=== PATIENT | female | born 1990 | race Caucasian/White ===

== ENCOUNTER 2021-06-06 11:28 | Outpatient (RCR) | payer BC, SELFPAY ==
[2021-06-06 12:40] LABS: Beta HCG Quantitative < 2.39 mIU/ML
== END 2021-09-04 23:59 | disposition home or self-care (01) ==
LOC: ANHLAB 11:28
PROVIDERS: PCP Family Medicine Adolescent Medicine; Visit Provider Obstetrics & Gynecology
DX: O20.0 Threatened abortion (principal); Z29.13 Encounter for prophylactic Rho(D) immune globulin; O36.0130 Maternal care for anti-D [Rh] antibodies, third trimester, not applicable or unspecified; Z3A.00 Weeks of gestation of pregnancy not specified
CPT/HCPCS: 36415; 84702; 85461; 90384; J2790

== ENCOUNTER 2021-06-07 07:42 | Outpatient (RCR) | payer BC, SELFPAY ==
[2021-06-08] MEDS: RHO(D) IMMUNE GLOBULIN 300 MCG/2 ML SYRINGE IM (12:52)
== END 2021-09-05 23:59 | disposition home or self-care (01) ==
LOC: ANHIMG 07:42
PROVIDERS: PCP Family Medicine Adolescent Medicine; Visit Provider Obstetrics & Gynecology
DX: O20.0 Threatened abortion (principal); O36.0130 Maternal care for anti-D [Rh] antibodies, third trimester, not applicable or unspecified; Z3A.00 Weeks of gestation of pregnancy not specified
CPT/HCPCS: 96372

== ENCOUNTER 2021-07-07 12:08 | Outpatient (RCR) | payer BC, SELFPAY ==
[2021-07-05 14:19] LABS: Beta HCG Quantitative 8.17 mIU/ML
[2021-07-07 12:49] LABS: Beta HCG Quantitative 39.47 mIU/ML
[2021-07-08 07:56] LABS: Progesterone 11.1 ng/mL (***)
== END 2021-10-03 23:59 | disposition home or self-care (01) ==
LOC: ANHLAB 12:08
PROVIDERS: PCP Family Medicine Adolescent Medicine; Visit Provider Obstetrics & Gynecology
DX: N91.2 Amenorrhea, unspecified (principal); Z87.59 Personal history of other complications of pregnancy, childbirth and the puerperium; Z32.01 Encounter for pregnancy test, result positive
CPT/HCPCS: 36415; 84144; 84702

== ENCOUNTER 2022-01-13 08:00 | Outpatient (RCR) | payer BC, MEDICAID, SELFPAY ==
[2022-01-10 11:01] LABS: Hematocrit 33.1 % (37.0-47.0); Hemoglobin 10.9 g/dL (12.0-15.0)
[2022-01-10 11:04] LABS: Glucose 1 Hour PP 50gm Dose 157 mg/dL
[2022-01-10 11:45] LABS: HIV 1/2 Ab P24 Ag Result Negative (Negative)
[2022-01-13] MEDS: RHO(D) IMMUNE GLOBULIN 300 MCG/2 ML SYRINGE IM (12:08)
== END 2022-04-10 23:59 | disposition home or self-care (01) ==
LOC: ANHLAB 08:00
PROVIDERS: PCP Family Medicine Adolescent Medicine; Visit Provider Obstetrics & Gynecology
DX: Z29.13 Encounter for prophylactic Rho(D) immune globulin (principal); O36.0130 Maternal care for anti-D [Rh] antibodies, third trimester, not applicable or unspecified; Z11.4 Encounter for screening for human immunodeficiency virus [HIV]; Z3A.00 Weeks of gestation of pregnancy not specified
CPT/HCPCS: 36415; 82947; 85014; 85018; 85461; 86703; 86850; 86870; 86900; 86901; 90384; 96372; G0432; J2790

== ENCOUNTER 2022-01-18 12:29 | Observation (INO) | payer BC, MEDICAID, SELFPAY ==
[2022-01-18 12:49] VITALS: BP 110/76; PULSE 99
[2022-01-18 13:01] VITALS: BP 112/71; PULSE 96
[2022-01-18 13:31] VITALS: BP 110/75; PULSE 94
--- NOTE | 2022-01-23 08:54 | PM.OBTRLD ---
OB - Triage/Final Diagnosis Visit Information Comments/Additional reasons for admission: I have assessed the risk for this patient, Flo Carias, and determined that she would benefit from observation care. Final Diagnosis (1) Trauma during : Code(s): O9A.219 - Injury, poisoning and certain other consequences of external causes complicating , unspecified trimester Status: Acute
== END 2022-01-18 14:00 | disposition home or self-care (01) ==
PROVIDERS: Admitting Provider Obstetrics & Gynecology; PCP Family Medicine Adolescent Medicine; Visit Provider Obstetrics & Gynecology
DX: O9A.213 Injury, poisoning and certain other consequences of external causes complicating pregnancy, third trimester (principal); T14.90XA Injury, unspecified, initial encounter; W18.39XA Other fall on same level, initial encounter; Z3A.31 31 weeks gestation of pregnancy
CPT/HCPCS: G0378; G0379

== ENCOUNTER 2022-03-11 08:23 | Outpatient (CLI) | payer BC, MEDICAID, SELFPAY ==
[2022-03-11 09:15] VITALS: BP 108/77; PULSE 108
== END 2022-03-11 09:15 | disposition home or self-care (01) ==
LOC: ANHOBOP 09:07
PROVIDERS: PCP Family Medicine Adolescent Medicine; Visit Provider Obstetrics & Gynecology
DX: O42.92 Full-term premature rupture of membranes, unspecified as to length of time between rupture and onset of labor (principal); Z3A.39 39 weeks gestation of pregnancy
CPT/HCPCS: 59025; 84112

== ENCOUNTER 2022-03-17 16:50 | Inpatient (IN) | payer BC, MEDICAID, SELFPAY ==
[2022-03-17] VITALS (41 sets, daily range): BP systolic 105–143; BP diastolic 63–108; PULSE 62–99; TEMP 36.8–37; O2SAT 96–100; BMI 41.4
--- OUTSIDE RECORDS SUMMARY | 2022-03-17 16:55 | XMS_ITS | Encounter Summary ---
:1990 Author Care Team Providers Name Role Phone Mark Ortega MD Primary Care Provider [phone] Reason for Visit None recorded. Assessment and Plan 1. Single umbilical artery ? US, obstetric, biophysical profile + non-stress test 2. condition affecting obs tetrical care of mother Discussion Note: None recorded.Patient educational handouts: No information available. Plan of Care Reminders Provider Appointments Nst Nst, , EQ UIP 03/22/2022 10:00AM ? U/S OB BPP Ultras ound Two, 03/22/2022 TECH 9:30AM ? Ob Routine Pushpa Th erese 03/22/2022 MD Miles 10:30AM Lab None recorded. ? ? Referral None recorded. ? ? Procedures None recorded. ? ? Surgeries None recorded. ? ? Imaging US, Obstetric, [facility] Biophysical Profile + 02/22/2022 Non-stress Test Medications Name Start Date ? ? sertraline 50 mg tablet ? TAKE 1 TABLET BY MOUTH ONCE DAILY DIRECTED Unisom (diphenhydramine) ?
--- OUTSIDE RECORDS SUMMARY | 2022-03-17 16:55 | XMS_ITS | Encounter Summary ---
:1990 Author Care Team Providers Name Role Phone Mark Ortega MD Primary Care Provider [phone] Reason for Visit OB visit Assessment and Plan 1. Routine care Discussion Note: None recorded.Patient educational handouts: No information available. Plan of Care Reminders Provider Appointments Nst Nst, , EQ UIP 03/22/2022 10:00AM ? U/S OB BPP Ultras ound Two, 03/22/2022 TECH 9:30AM ? Ob Routine Pushpa Th mara Aquino, 03/22/2022 10:30AM Lab None ? ? recorded. Referral None ? ? recorded. Procedures None ? ? recorded. Surgeries None ? ? recorded. Imaging None ? ? recorded. Medications Name Start Date ? ? sertraline 50 mg tablet ? TAKE 1 TABLET BY MOUTH ONCE DAILY DIRECTED Unisom (diphenhydramine) ? Vitamin B-6 ? Medications Administered None recorded. Vitals Height Weight BMI Blood Pressure 5 ft 10 in 281 lbs 40.3 kg/m2 116/78 mm[Hg] Results Lab Results None recorded. Allergies Code Code System N
--- OUTSIDE RECORDS SUMMARY | 2022-03-17 16:55 | XMS_ITS | Encounter Summary ---
:1990 Author Care Team Providers Name Role Phone Mark Ortega MD Primary Care Provider [phone] Reason for Visit None recorded. Assessment and Plan 1. Single umbilical artery ? US, obstetric, biophysical profile + non-stress test Discussion Note: None recorded.Patient educational handouts: No [...] None recorded. ? ? Imaging US, Obstetric, [facility] Biophysical Profile + 03/15/2022 Non-stress Test Medications Name Start Date ? ? sertraline 50 mg tablet ? TAKE 1 TABLET BY MOUTH ONCE DAILY DIRECTED Unisom (diphenhydramine) ? Vitamin B-6 ? Medications Administered None recorded. Vitals N
--- OUTSIDE RECORDS SUMMARY | 2022-03-17 16:55 | XMS_ITS | Encounter Summary ---
:1990 Author Care Team Providers Name Role Phone Mark Ortega MD Primary Care Provider [phone] Reason for Visit None recorded. Assessment and Plan 1. Placenta circumvallata ? non-stress test Discussion Note: None recorded.Patient educational [...] recorded. Surgeries None ? ? recorded. Imaging Non-stress [place] Test 03/15/2022 Medications Name Start Date ? ? sertraline 50 mg tablet ? TAKE 1 TABLET BY MOUTH ONCE DAILY DIRECTED Unisom (diphenhydramine) ? Vitamin B-6 ? Medications Administered None recorded. Vitals None recorded. Results Lab Results None recorded. Allergies Code Code System
--- OUTSIDE RECORDS SUMMARY | 2022-03-17 16:55 | XMS_ITS | Encounter Summary ---
:1990 Author Care Team Providers Name Role Phone Mark Ortega MD Primary Care Provider [phone] Reason for Visit OB visit Assessment and Plan 1. Single umbilical artery 2. Placenta circumvallata Discussion Note: None recorded.Patient educational handouts: No [...] BMI Blood Pressure 5 ft 10 in 289 lbs 41.5 kg/m2 111/78 mm[Hg] Results Lab Results
--- OUTSIDE RECORDS SUMMARY | 2022-03-17 16:55 | XMS_ITS ---
:1990 Author Care Team Providers Name Role Phone GALA RODRÍGUEZ MD Primary Care Provider [phone] Allergies Code Code System Name Reaction Severity Status Onset NKDA ? Medications Name Status Start Date Stop Date ? ? Flublok Quad (PF) 180 mcg (45 mcg x 4)/0.5 mL IM syrin ge Completed ? 12/26/2020 PHARMACY ADMINISTERED medroxyprogesterone 10 mg tablet Completed ? 12/26/2020 TAKE 1 TABLET BY MOUTH ONCE DAILY FOR 10 DAYS metformin 500 mg tablet Completed ? 07/09/20 Take 1 tablet every day by oral route at bedtime for 14 days. then one tab BID. metoclopramide 5 mg tablet Completed ? 09/17 NuvaRing 0.12 mg-0.015 mg/24 hr vaginal Completed ? 12/26/2020 USE DIRECTED sertraline 50 mg tablet Active ? Not avai lable TAKE 1 TABLET BY MOUTH ONCE DAILY DIRECTED Unisom (diphenhydramine) Active ? Not philip ilable Vitamin B-6 Active ? Not available Problems Name Status Onset Date Source ? Polycystic Ovary Syndrome Active 12/27/2020 ? Insulin Resistance Active 12/27/2020 ? Active 08/20/2021 ? Prediabetes Active 08/22/2021 ? Depressive Disorder Active ? ? Placenta Circumvallata Active ? ? Single Umbilical Artery Active ? ? Laboratory Test Result Abnormal Active ? ? Procedures Date Name Performed by ?
--- OUTSIDE RECORDS SUMMARY | 2022-03-17 16:55 | XMS_ITS | Encounter Summary ---
:1990 Author Care Team Providers Name Role Phone Mark Ortega MD Primary Care Provider [phone] Reason for Visit None recorded. Assessment and Plan 1. condition affecting obs tetrical care of mother ? non-stress test Discussion Note: None recorded.Patient [...] ? recorded. Imaging Non-stress [place] Test 02/22/2022 Medications Name Start Date ? ? sertraline 50 mg tablet ? TAKE 1 TABLET BY MOUTH ONCE DAILY DIRECTED Unisom (diphenhydramine) ? Vitamin B-6 ? Medications Administered None recorded. Vitals None recorded. Results Lab Results None recorded. Allergies
--- OUTSIDE RECORDS SUMMARY | 2022-03-17 16:55 | XMS_ITS | Encounter Summary ---
:1990 Author Care Team Providers Name Role Phone Mark Ortega MD Primary Care Provider [phone] Reason for Visit OB visit Assessment and Plan 1. Placenta circumvallata 2. Single umbilical artery 3. Depressive disorder ? sertraline 50 mg tablet Discussion Note: None recorded.Patient educational handouts: No information available. Plan of Care Reminders Provider Appointments Nst Nst, , EQ UIP 03/22/2022 10:00AM ? U/S OB BPP Ultras ound Two, 03/22/2022 TECH 9:30AM ? Ob Routine Pushpa Angela Aquino, 03/22/2022 10:30AM Lab None ? ? [...] BMI Blood Pressure 5 ft 10 in 264 lbs 37.9 kg/m2
--- OUTSIDE RECORDS SUMMARY | 2022-03-17 16:55 | XMS_ITS | Encounter Summary ---
:1990 Author Care Team Providers Name Role Phone Mark Ortega MD Primary Care Provider [phone] Reason for Visit None recorded. Assessment and Plan 1. condition affecting obs tetrical care of mother ? US, obstetric, follow-up Discussion Note: None recorded.Patient educational handouts: No information available. Plan of Care Reminders Provider Appointments Nst Nst, , EQ UIP 03/22/2022 10:00AM ? U/S OB BPP Ultras ound Two, 03/22/2022 TECH 9:30AM ? Ob Routine Pushpa Th mara Aquino, 03/22/2022 10:30AM Lab None ? ? recorded. Referral None ? ? recorded. Procedures None ? ? recorded. Surgeries None ? ? recorded. Imaging [facility] Obstetric, Follow-up 02/08/2022 Medications Name Start Date ? ? sertraline 50 mg tablet ? TAKE 1 TABLET BY MOUTH ONCE DAILY DIRECTED Unisom (diphenhydramine) ? Vitamin B-6 ? Medications Administered None recorded. Vitals None recorded. Results Lab Results None recorded. Allergies
--- OUTSIDE RECORDS SUMMARY | 2022-03-17 16:55 | XMS_ITS | Encounter Summary ---
:1990 Author Care Team Providers Name Role Phone Mark Ortega MD Primary Care Provider [phone] Reason for Visit None recorded. Assessment and [...] ? recorded. Imaging Non-stress [place] Test 03/06/2022 Medications Name Start Date ? ? sertraline 50 mg tablet ? TAKE 1 TABLET BY MOUTH ONCE DAILY DIRECTED Unisom (diphenhydramine) ? Vitamin B-6 ? Medications Administered None recorded. Vitals None recorded. Results Lab Results None recorded. Allergies Code Code System
--- OUTSIDE RECORDS SUMMARY | 2022-03-17 16:55 | XMS_ITS | Encounter Summary ---
:1990 Author Care Team Providers Name Role Phone Mark Ortega MD Primary Care Provider [phone] Reason for Visit OB visit Assessment and Plan Assessment Note Patient is ___weeks . Discu ssed plan. 1. Routine care Discussion Note: None recorded.Patient [...] BMI Blood Pressure 5 ft 10 in 277 lbs 39.7 kg/m2 136/84 mm[Hg] Results
--- OUTSIDE RECORDS SUMMARY | 2022-03-17 16:55 | XMS_ITS | Encounter Summary ---
:1990 Author Care Team Providers Name Role Phone Mark Ortega MD Primary Care Provider [phone] Reason for Visit None recorded. Assessment and [...] ? recorded. Imaging Non-stress [place] Test 03/01/2022 Medications Name Start Date ? ? sertraline 50 mg tablet ? TAKE 1 TABLET BY MOUTH ONCE DAILY DIRECTED Unisom (diphenhydramine) ? Vitamin B-6 ? Medications Administered None recorded. Vitals None recorded. Results Lab Results None recorded. Allergies Code Code System
--- OUTSIDE RECORDS SUMMARY | 2022-03-17 16:55 | XMS_ITS | Encounter Summary ---
:1990 Author Care Team Providers Name Role Phone Mark Ortega MD Primary Care Provider [phone] Reason for Visit None recorded. Assessment and Plan 1. condition affecting obs tetrical care of mother ? US, obstetric, biophysical profile + non-stress test ? US, obstetric, follow-up Discussion Note: None [...] None recorded. ? ? Imaging US, Obstetric, [facility] Biophysical Profile + 03/06/2022 Non-stress Test ? US, Obstetric, [facility] Follow-up 03/06/2022 Medications Name Start Date ? ?
--- OUTSIDE RECORDS SUMMARY | 2022-03-17 16:55 | XMS_ITS | Encounter Summary ---
:1990 Author Care Team Providers Name Role Phone Mark Ortega MD Primary Care Provider [phone] Reason for Visit OB visit OB [id number] EDC 03/18/2022 LMP 12/02/2020 Assessment and Plan Assessment Note Patient is __37_weeks . Dis cussed plan. 1. Routine care Discussion Note: None [...] BMI Blood Pressure 5 ft 10 in 279
--- OUTSIDE RECORDS SUMMARY | 2022-03-17 16:55 | XMS_ITS | Encounter Summary ---
:1990 Author Care Team Providers Name Role Phone Mark Ortega MD Primary Care Provider [phone] Reason for Visit None recorded. Assessment and Plan 1. Placenta circumvallata ? US, obstetric, biophysical profile + non-stress [...] None recorded. ? ? Imaging US, Obstetric, [facility] Biophysical Profile + 03/01/2022 Non-stress Test Medications Name Start Date ? ? sertraline 50 mg tablet ? TAKE 1 TABLET BY MOUTH ONCE DAILY DIRECTED Unisom (diphenhydramine) ? Vitamin B-6 ? Medications Administered None recorded. Vitals Non
--- OUTSIDE RECORDS SUMMARY | 2022-03-17 16:56 | XMS_ITS | Encounter Summary ---
:1990 Author Care Team Providers Name Role Phone Mark Ortega MD Primary Care Provider [phone] Reason for Visit None recorded. Assessment and [...] recorded. Surgeries None ? ? recorded. Imaging [facility] Obstetric, Follow-up 01/09/2022 Medications Name Start Date ? ? sertraline 50 mg tablet ? TAKE 1 TABLET BY MOUTH ONCE DAILY DIRECTED Unisom (diphenhydramine) ? Vitamin B-6 ? Medications Administered None recorded. Vitals None recorded. Results Lab Results None recorded. Allergies
--- NOTE | 2022-03-17 17:01 | P.PNAN_ITS ---
Anes - Eval Pre Procedure Procedure: labor epidural Date/Time: 03/17/22 17:01 Surgeon: addie Pre Op Diagnosis: IOL Patient Data Age: 31 Gender: F Height: Weight: Allergies Allergy/AdvReac Type Severity Reaction Status Date / Time adhesive tape Allergy Rash Verified 02/19/22 12:44 Patient hx anesthesia problems: none Family hx anesthesia problems: none Results Review: All pre-operative results and documents have been reviewed as part of the pre-operative evaluation. [facility] Family History Family History (Updated 02/19/22 @ 12:45 by Joan Tadeo RN) Mother Skin cancer Sibling ADHD Sibling Autism Father Colon cancer Social History Social History Substance use: never Spiritual care concerns: No Exam Day of Procedure 03/17/22 17:01
--- NOTE | 2022-03-17 17:30 | LDADM ---
This patient, Flo Carias, was admitted to Labor/Delivery/Recovery 107 on 03/17/22 at 16:50. Plans for labor, pain management and were discussed with patient. Patient/family oriented to hospital policies and general routines including ID bracelet, bed and alarms, visiting hours, pain management, procedures, bathroom and other care routines, personal items, smoking policy, room service/diet and guest tray routines, infant security routines, and visiting hours. Patient/Family are encouraged to report perceived risks to care and to ask questions if they do not understand what they are told or what they should do. See OBIX for further documentation.
[2022-03-17 17:43] LABS: Basophils Percent Auto 0.3 % (0.2-1.2); Eosinophils Absolute Auto 0.1 K/mm3 (0-0.3); Eosinophils Percent Auto 0.7 % (0-4.4); Hematocrit 36.5 % (37.0-47.0); Hemoglobin 11.7 g/dL (12.0-15.0); Immature Granulocyte Absolute 0.03 K/mm3 (0.00-0.031); Immature Granulocyte Percent A 0.4 % (0-0.5); Lymphocytes Absolute Auto 1.45 K/mm3 (0.9-3.2); Lymphocytes Percent Auto 21.2 % (18.3-44.2); Mean Corpuscular HGB Conc 32.1 g/dl (32-36); Mean Corpuscular Hemoglobin 28.1 pg (26-34); Mean Corpuscular Volume 87.5 fl (80-100); Mean Platelet Volume 9.8 fl (7.4-10.4); Monocytes Absolute Auto 0.6 K/mm3 (0.1-0.6); Monocytes Percent Auto 9.1 % (2.6-8.5); Neutrophils Absolute Auto 4.7 K/mm3 (1.3-6.7); Neutrophils Percent Auto 68.3 % (45.5-73.1); Platelet Count Result 192 k/mm3 (150-375); Red Blood Count 4.17 M/mm3 (4.2-5.4); Red Cell Distribution Width 13.6 % (11.5-14.5); White Blood Count 6.8 K/mm3 (4.5-10.0)
[2022-03-17 17:53] LABS: Alanine Aminotransferase 13 U/L (4-35); Albumin Level 3.7 g/dL (3.5-5.1); Alkaline Phosphatase 130 U/L (38-126); Anion Gap 7 mmol/L (8-16); Aspartate Amino Transferase 24 U/L (14-36); Bilirubin,Total 0.2 mg/dL (0.2-1.3); Blood Urea Nitrogen 16 mg/dL (7-17); Calcium 8.6 mg/dL (8.4-10.2); Carbon Dioxide 18 mmol/L (22-30); Chloride 109 mmol/L (98-107); Estimated CRCL calculation 170 ml/min; Estimated Glomerular Filt Rate > 60; Glucose 77 mg/dL (65-110); Potassium 3.9 mmol/L (3.4-5.0); Sodium 134 mmol/L (137-145); Uric Acid 5.9 mg/dL (2.5-7.5)
[2022-03-17] MEDS: LACTATED RINGERS 1,000 ML 125 ML IV CONT (18:00)
[2022-03-17] MEDS: OXYTOCIN 30 UNITS/NS 500 ML 30 UNITS/500 ML BAG IV CONT (18:01)
[2022-03-18] VITALS (24 sets, daily range): BP systolic 106–132; BP diastolic 58–87; PULSE 81–108; RESP 16–20; TEMP 36.6–37.2; O2SAT 97–100
[2022-03-18] MEDS: LACTATED RINGERS 1,000 ML 125 ML IV CONT (00:05)
--- NOTE | 2022-03-18 00:46 | PM.OBPRVD ---
OB - Delivery Note Procedure Delivery date: 03/18/22 Procedure: Induction method: AROM and Per Pitocin Protocol Delivery monitor: External FHT and External Uterine Route of delivery: Episiotomy description: None Laceration Description: Perineal - 2nd Degree Delivery repair: vicryl Quantitative Blood Loss (ml): 325 Anesthesia type: Epidural Disposition: Floor Narrative: With adequate expulsive efforts by the mother, the baby's head was delivered OA. The baby's anterior shoulder was delivered under the pubic symphysis without difficulty. The posterior shoulder and the rest of the baby delivered without difficulty. The was placed on the mothers chest and suctioned and stimulated. The cord was clamped and cut after 30 seconds. Mother and baby both stable. [place] Baby Date of : 03/18/22 Time of : 00:28 Weeks of gestation at delivery: 40 Infant gender: Male Weight (pounds): 9 Weight (ounces): 6 presentation: vertex Placenta delivery description: Spontaneous Cord Vessel Description: 2 Vessels, Nuchal Cord (x2) and Clamped/Cut Narrative: apgars pending per nursery
[2022-03-18] MEDS: OXYTOCIN 30 UNITS/NS 500 ML 30 UNITS/500 ML BAG 125 UNITS IV CONT (01:08)
[2022-03-18] MEDS: WITCH HAZEL 40 PADS 1 PAD TOPICAL (01:09)
[2022-03-18] MEDS: IBUPROFEN 600 MG TABLET PO ×3 (01:09→20:40)
[2022-03-18] MEDS: BENZOCAINE 20% AER SPR (*SP) 56 GM CAN 1 SPRAY TOPICAL (01:09)
[2022-03-18] MEDS: METHYLERGONOVINE MALEATE 0.2 MG/ML VIAL IM (04:18)
--- NOTE | 2022-03-18 06:42 | OBPPTRN ---
03/18/2022 at 0318 Patient transferred to post room #282 Support person, Josefina the patient's mother is present. Oriented to unit, room, information board, rooming in, admission packet and security measures. Patient verbalizes understanding.
--- NOTE | 2022-03-18 07:43 | WPDOBADMIT ---
Obstetrics - Admit Note Admission Note: record reviewed. No pertinent additions to the history and/or any subsequent changes in the physical findings that are not consistent with the expected course of the were found. Additions to the history and/or subsequent changes in the physical findings follow. IUP at 40w for IOL. GBS neg, SUA. Placenta cricumvallate, has had normal growth. Depression on zoloft, stable. Anticipate .
[2022-03-18] MEDS: MULTIVIT/MIN/PREN/FOL AC/IRON TABLET 1 TAB PO (08:58)
[2022-03-18] MEDS: SERTRALINE HCL 50 MG TABLET PO (08:59)
[2022-03-18] MEDS: DOCUSATE SODIUM 100 MG CAPSULE PO (08:59)
[2022-03-18 09:00] LABS: Rapid Plasma Reagin Non-Reactive (NonReactive)
--- NOTE | 2022-03-18 14:49 | PC.NURSE ---
1300 - Introductions were made, then consulted with patient to assess needs related to . Mother led the conversation with her experience feeding her infant so far. Mother works well with her . Encouraged understanding of the benefits of skin to skin (unwrapping and placing vertically on her chest), responsive feeding and how to watch for early feeding signs, frequency of feeding on demand about every 8-12 times in 24 hours (every 2-3 hours), milk production, duration of feeding, signs of adequate intake/output and how to record on the feeding sheet. Mother has infant latched optimally on the right breast using football positioning. detach due to latch appearing to be less than 90 degrees, then improved positioning with tucking infant's buttocks up under mom's arm. Reviewed positioning and ear, shoulder, hip alignment, supporting the breast, asymmetrical latch (off-center), and leading with the chin with a big open side gape. latched optimally to the right breast in football position. Education given to mother of how to visualize suck/swallow ratios and drinking at the breast. Infant was able to maintain latch without discomfort to mother. Nipple care reviewed with optimal latch and good positioning. Reviewed good handwashing when or touching the breast/nipples to prevent infection. self detached and nipple was not misshaped, then optimally latched onto left breast in football position and effectively breastfed with pain denied by mother. Resources used to facilitate learning were used with the visual handouts/ tool/mom and baby guide. Mother voiced understanding of responsive feedings, stimulating with skin to skin, hand expressed colostrum, touch, talking to to encourage if it has been 2 -3 hours since the start of the last , to call if does not latch or there is discomfort with . Reported to the primary RN.
[2022-03-18] MEDS: ACETAMINOPHEN 325 MG TABLET 650 MG PO (20:40)
[2022-03-19] VITALS: BP 109/71; PULSE 80; RESP 20; TEMP 36.8
[2022-03-19 06:02] LABS: Hematocrit 30.2 % (37.0-47.0); Hemoglobin 9.5 g/dL (12.0-15.0)
[2022-03-19 07:45] VITALS: BP 121/78; PULSE 85; RESP 18; TEMP 36.9; O2SAT 97
--- NOTE | 2022-03-19 07:53 | P.PNOB_ITS ---
OB - PN: Subj Subjective Date/time seen: 03/19/22 07:53 Patient comments: no complaints and pain well controlled baby status: doing well [place] feeding status: breast and bottle feeding Narrative: would like to go home today if baby's sugars are ok OB - PN: Obj Data Labs CBC & Chem 7: 03/19/22 05:24 03/17/22 17:36 Labs: Laboratory Results - last 24 hr 03/17/22 03/19/22 17:35 05:24 Hgb 9.5 L Hct 30.2 L RPR Non-reactive OB - PN A/P Assessment and Plan (1) , delivered: Code(s): O80 - Encounter for full-term uncomplicated delivery Status: Acute Plan day: 1 Plan: routine care and discharge home Comments: home if baby ok for DC Time Spent With Patient Time: Total time spent is greater than 50% in coordination of care (as documented) at patient's floor/unit and/or counseling patient: Time with patient: less than 15 minutes Exam Narrative: NAD abdomen soft, nontender, fundus firm below the umbilicus Extremities nontender, 1+ edema
--- NOTE | 2022-03-19 07:58 | PM.OBDSVD ---
DS: Admitting Diagnosis Discharge Date 03/19/22 Admitting Diagnosis term IUP DS: Discharge Diagnosis Discharge Diagnosis (1) , delivered: Code(s): O80 - Encounter for full-term uncomplicated delivery Status: Acute OB - DS: Summary Hospital Course Hospital Course: Flo was admitted for induction of labor. She had an uncomplicated vaginal delivery and post course. OB Procedures : NST and Ultrasound OB Procedures Intrapartum: Spontaneous Vag Delivery OB Procedures: : None Peripartum Data Infant Delivery Method: Natural Vaginal Status at Discharge Functional status at discharge: independent ambulation Time Spent with Patient Time attestation: Total time spent providing and/or coordinating discharge services: Exam Narrative: NAD abdomen soft, appropriately tender Ext non tender, 1+ edema DS: Data Data Completed and Pending Labs on day of discharge: Labs from last 24 hours 03/19/22 03/17/22 05:24 17:35 Hgb 9.5 L Hct 30.2 L RPR Non-reactive Discharge Plan Discharge Attending physician on discharge: Pushpa Aquino Discharging Clinician: Pushpa Aquino Anticipated Discharge Date/Time: 03/19/22 11:00 Patient Disposition: Home, Self-Care Activity: pelvic rest Diet: regular Patient Instructions: Antibiotic Form Stand Alone Forms: General Discharge Information Follow-up/Referrals: Pushpa Aquino MD [Physician] - 4 Weeks Discharge Medications: Continued sertraline [Zoloft] 50 mg Tablet 50 mg PO DAILY RF: 0 Vitamin Tablet 1 tablet PO DAILY RF: 0 Discontinued Unisom (doxylamine) 25 mg Tablet 12.5 mg PO HS PRN (Reason: Sleep) RF: 0 Date of admission: 03/17/22 16:50 Primary Care Provider: Mark Ortega Admitting Provider: Pushpa Aquino Attending physician on admission: Pushpa Aquino Condition: Stable
[2022-03-19] MEDS: SERTRALINE HCL 50 MG TABLET PO (08:42)
[2022-03-19] MEDS: POLYSACCHARIDE IRON COMPLEX 150 MG CAPSULE PO (08:42)
[2022-03-19] MEDS: IBUPROFEN 600 MG TABLET PO (08:42)
[2022-03-19] MEDS: DOCUSATE SODIUM 100 MG CAPSULE PO (08:42)
--- NOTE | 2022-03-19 09:18 | WPDANLDPN2 ---
Anes-Prog Note L&D Date/Time: 03/19/22 09:18 Comfortable throughout: labor and delivery Neuraxial method: epidural Epidural/Spinal procedure site: clean & non-tender Neuro status: Neuro function grossly intact. Cardiovascular status: normal Respiratory status: normal Airway patency: baseline Mental status: baseline Post-Op hydration status: normal Vital Signs: Last Vital Signs Temp 98.2 F 03/19/22 00:00 Pulse 80 03/19/22 00:00 Resp 20 03/19/22 00:00 BP 109/71 03/19/22 00:00 Pulse Ox 98 03/18/22 17:35 Pain score (VAS): 0 I/O: Intake & Output 03/18/22 03/19/22 03/19/22 23:59 07:59 15:59 Intake Total 480 Balance 480 Post-procedural complaints: none Patient feedback: Patient satisfied with anesthetic care.
--- NOTE | 2022-03-19 10:33 | PC.NURSE ---
0845 - Consulted with patient to assess needs related to . Mother led conversation with her experience with feeding baby so far. Mother works well with her with encouragement. Reviewed working with infant, breast, nipples and how to protect the nipples with an optimal deep latch, good positioning, and good hand washing. Mother understands the benefits of skin to skin, responding to feeding cues, frequencies of feeding 8-12 times in 24 hours (approximately 2-3 hours), duration of feedings, milk production, intake/output feeding sheet and signs of adequate intake encouraging swallowing at the breast. Mother states infant has been supplemented with formula from a bottle and cup feeding related to a low blood sugar. Blood sugar checked at 0849 and resulted at 50 mg/dl. is inconsolable when at the breast and chest. frantically sucks on the pacifier provided by mother. Rare latching with infant results with a few sucks, then crying. Supplemented infant with 10cc, then infant calmed down and latched effectively to the left breast using a football position. maintained latch with no discomfort to mother, nice rounded cheek. Reviewed positioning and alignment, supporting breast, off-centered (asymmetrical latch) and leading with the chin with big open wide gape. Education given to mother of how to visualize suck/swallow ratios and drinking at the breast. Infant was able to maintain latch without discomfort to mother. Nipple care reviewed with optimal latch and good positioning, comfort, healing with warm, wet washcloth to rinse breast, then leave open to air-dry, colostrum may be left on nipples to dry but have clean hands when touching the nipple/breast as needed. Resources used to facilitate learning were used from the visual handout/mom and baby guide. Mother voiced understanding of the education shared, calling for assistance if the infant does not latch or if there is discomfort with . Reported to the primary RN.
--- NOTE | 2022-03-19 16:49 | PC.NURSE ---
1200 Patient viewed the discharge video Mother & Baby Care, The First Two Weeks . Patient was given the opportunity and encouraged to ask questions. Patient verbalized understanding of information shared and has been given the mother/baby guide for home reference.
[2022-03-20 09:56] VITALS: BP 133/96; PULSE 94; RESP 20; TEMP 37; O2SAT 100
== END 2022-03-19 16:15 | disposition home or self-care (01) | DRG 807 ==
LOC: ANHLDR 16:53 → ANHOB2 03-18 03:28
PROVIDERS: Admitting Provider Obstetrics & Gynecology; PCP Family Medicine Adolescent Medicine; Visit Provider Obstetrics & Gynecology
DX: O43.113 Circumvallate placenta, third trimester (principal); Z37.0 Single live birth; Z3A.40 40 weeks gestation of pregnancy; O69.81X0 Labor and delivery complicated by cord around neck, without compression, not applicable or unspecified; O77.0 Labor and delivery complicated by meconium in amniotic fluid; O70.1 Second degree perineal laceration during delivery; O99.344 Other mental disorders complicating childbirth; F32.A Depression, unspecified
CPT/HCPCS: 36415; 80053; 84112; 84550; 85014; 85018; 85025; 86592; 86850; 86870; 86880; 86900; 86901; 86902; 86971; A9270; J2210; J2590; J2795; J7120

== ENCOUNTER 2022-03-20 11:08 | Outpatient (CLI) | payer BC, MEDICAID, SELFPAY ==
[2022-03-20 11:32] VITALS: BP 118/85; PULSE 93; RESP 16; TEMP 36.4
[2022-03-20 11:45] VITALS: BP 112/82; PULSE 87
[2022-03-20 11:48] LABS: Basophils Percent Auto 0.5 % (0.2-1.2); Eosinophils Absolute Auto 0.1 K/mm3 (0-0.3); Eosinophils Percent Auto 1.2 % (0-4.4); Hematocrit 30.9 % (37.0-47.0); Hemoglobin 9.8 g/dL (12.0-15.0); Immature Granulocyte Absolute 0.03 K/mm3 (0.00-0.031); Immature Granulocyte Percent A 0.4 % (0-0.5); Lymphocytes Absolute Auto 1.17 K/mm3 (0.9-3.2); Lymphocytes Percent Auto 14.2 % (18.3-44.2); Mean Corpuscular HGB Conc 31.7 g/dl (32-36); Mean Corpuscular Hemoglobin 28.3 pg (26-34); Mean Corpuscular Volume 89.3 fl (80-100); Mean Platelet Volume 9.3 fl (7.4-10.4); Monocytes Absolute Auto 0.6 K/mm3 (0.1-0.6); Monocytes Percent Auto 7.4 % (2.6-8.5); Neutrophils Absolute Auto 6.3 K/mm3 (1.3-6.7); Neutrophils Percent Auto 76.3 % (45.5-73.1); Platelet Count Result 171 k/mm3 (150-375); Red Blood Count 3.46 M/mm3 (4.2-5.4); Red Cell Distribution Width 14.1 % (11.5-14.5); White Blood Count 8.2 K/mm3 (4.5-10.0)
[2022-03-20 12:00] VITALS: BP 116/87; PULSE 89
[2022-03-20 12:00] LABS: Alanine Aminotransferase 14 U/L (4-35); Alkaline Phosphatase 88 U/L (38-126); Anion Gap 5 mmol/L (8-16); Aspartate Amino Transferase 23 U/L (14-36); Bilirubin,Total < 0.1 mg/dL (0.2-1.3); Blood Urea Nitrogen 11 mg/dL (7-17); Calcium 8.1 mg/dL (8.4-10.2); Carbon Dioxide 24 mmol/L (22-30); Chloride 107 mmol/L (98-107); Estimated Glomerular Filt Rate > 60; Glucose 94 mg/dL (65-110); Potassium 4.2 mmol/L (3.4-5.0); Sodium 136 mmol/L (137-145); Uric Acid 6.4 mg/dL (2.5-7.5)
--- NOTE | 2022-03-20 14:06 | PC.NURSE ---
Sandy MCCLOUDM informed of BP's, lab results, and I held the Labetalol. Order received to discharge pt to home with preeclampsia precautions and to make appointment to have BP checked in office next week.
== END 2022-03-20 12:35 | disposition home or self-care (01) ==
LOC: ANHOBOP 11:13 → ANHOBPP 11:14
PROVIDERS: Advanced Practice Midwife; PCP Family Medicine Adolescent Medicine; Visit Provider Obstetrics & Gynecology
DX: O16.5 Unspecified maternal hypertension, complicating the puerperium (principal)
CPT/HCPCS: 36415; 80053; 84550; 85025; 99199

== ENCOUNTER 2022-03-23 21:38 | Outpatient (CLI) | payer BC, MEDICAID, SELFPAY ==
--- NOTE | 2022-03-23 22:06 | OBADM ---
This patient, lFo Carias, admitted to the OB room OB Post 116 for observation. Patient/family oriented to hospital policies and general routines including ID bracelet, bed and alarms, visiting hours, pain management, procedures, bathroom and other care routines, personal items, smoking policy, room service/diet, and visiting hours. Patient/Family are encouraged to report perceived risks to care and to ask questions if they do not understand what they are told or what they should do.
[2022-03-23 22:08] LABS: Basophils Percent Auto 0.4 % (0.2-1.2); Eosinophils Absolute Auto 0.1 K/mm3 (0-0.3); Hematocrit 35.3 % (37.0-47.0); Immature Granulocyte Absolute 0.05 K/mm3 (0.00-0.031); Immature Granulocyte Percent A 0.7 % (0-0.5); Lymphocytes Absolute Auto 1.56 K/mm3 (0.9-3.2); Lymphocytes Percent Auto 21.8 % (18.3-44.2); Mean Corpuscular HGB Conc 31.2 g/dl (32-36); Mean Corpuscular Hemoglobin 27.9 pg (26-34); Mean Corpuscular Volume 89.6 fl (80-100); Mean Platelet Volume 9.3 fl (7.4-10.4); Monocytes Absolute Auto 0.8 K/mm3 (0.1-0.6); Monocytes Percent Auto 10.6 % (2.6-8.5); Neutrophils Absolute Auto 4.6 K/mm3 (1.3-6.7); Neutrophils Percent Auto 64.5 % (45.5-73.1); Platelet Count Result 252 k/mm3 (150-375); Red Blood Count 3.94 M/mm3 (4.2-5.4); Red Cell Distribution Width 13.6 % (11.5-14.5); White Blood Count 7.2 K/mm3 (4.5-10.0)
[2022-03-23 22:13] VITALS: PULSE 101; PULSE 72; O2SAT 98
[2022-03-23 22:14] VITALS: BP 145/94; PULSE 90; RESP 18; TEMP 37
[2022-03-23 22:16] LABS: Add Urine Microscopic? YES; Appearance Urine Cloudy (Clear); Bilirubin Urine Negative (Negative); Blood Urine 3+ (Negative); Color Urine Yellow (Yellow); Glucose Urine UA Negative (Negative); Ketones Urine Negative (Negative); Leukocyte Esterase Ur 2+ LEU/UL (NEGATIVE); Mucus Urine Rare /lpf; Nitrate Urine Negative (Negative); Protein Urine Negative (Negative); Specific Grav Ur 1.018 (1.001-1.035); Squamous Epithelial Cell Urine Occasional /hpf (Few); Urobilinogen Urine Negative mg/dL (<2.0); WBC Urine 16-20 /hpf (0-3)
[2022-03-23 22:22] LABS: Alanine Aminotransferase 22 U/L (4-35); Albumin Level 3.5 g/dL (3.5-5.1); Alkaline Phosphatase 104 U/L (38-126); Anion Gap 5 mmol/L (8-16); Aspartate Amino Transferase 27 U/L (14-36); Bilirubin,Total 0.1 mg/dL (0.2-1.3); Blood Urea Nitrogen 14 mg/dL (7-17); Calcium 8.4 mg/dL (8.4-10.2); Carbon Dioxide 26 mmol/L (22-30); Chloride 106 mmol/L (98-107); Estimated Glomerular Filt Rate > 60; Glucose 84 mg/dL (65-110); Sodium 137 mmol/L (137-145); Uric Acid 7.4 mg/dL (2.5-7.5)
[2022-03-23 22:23] LABS: Total Protein Urine Random 12 mg/dL; Ur Ttl Prot Creatinine Ratio 0.11 mg/mg (0-0.20)
[2022-03-23 22:32] VITALS: BP 145/94; PULSE 86
--- NOTE | 2022-03-23 22:56 | PC.NURSE ---
Dr. Arias called and updated on patient's laboratory results, blood pressures, and current symptoms. Per Dr. Arias, patient may be discharged to home with OB appointment/blood pressure check up in the office on Friday or Friday. Discharge instructions reviewed with patient and all questions/concerns addressed at this time. Patient verbalized understanding and agrees with plan of care.
== END 2022-03-23 23:03 | disposition home or self-care (01) ==
LOC: ANHOBPP 22:47 → ANHOBOP 03-25 12:56 → ANHOBPP 03-25 12:56
PROVIDERS: Obstetrics & Gynecology; PCP Family Medicine Adolescent Medicine; Visit Provider Obstetrics & Gynecology
DX: O13.9 Gestational [pregnancy-induced] hypertension without significant proteinuria, unspecified trimester (principal); Z3A.00 Weeks of gestation of pregnancy not specified
CPT/HCPCS: 36415; 80053; 81001; 82570; 84156; 84550; 85025; 87086; 87088; 99199

== ENCOUNTER 2025-05-25 22:04 | Emergency (ER) | payer OTHER, SELFPAY ==
--- NOTE | ~2025-05-25 | XR_ITS ---
XR chest 2V Ordering provider: Marilyn Holley MD History: 34 years Female with . SOB PALPITATIONS . Comparison: None. FINDINGS: MEDIASTINUM: The cardiac silhouette is not enlarged. LUNGS: No infiltrates, effusions or pneumothorax. OTHER: No free air under the diaphragm. IMPRESSION: No acute cardiopulmonary pathology. Reviewed, dictated and finalized at location A.
[2025-05-25 22:07] VITALS: BP 150/112; PULSE 110; RESP 20; TEMP 36.3; O2SAT 98
--- OUTSIDE RECORDS SUMMARY | 2025-05-25 22:07 | XMS_ITS | Data Portability ---
Author Organization [facility] Address [address] [place] [place] [address] Care Team Providers Care Long Distance Billing Operator Name Role Phone GALA ZHANG Primary Care Provider Assessment Encounter Date Assessment Date Assessment LastModified by Organization Details LastModified Time 05/08/2022 05/08/2022 Normal exam May resume normal activities contraceptive plan-- abstinence FU for WWE 2 mos [email or web address] Not available 05/08/2022 14:58:06 Plan of Treatment Reminders Order Date Submit Date Provider Last Modified By Organization Details Last Modified Time Details Appointments None recorded. Lab None recorded. Referral None recorded. Procedures None recorded. Surgeries None recorded. Imaging US, obstetric, biophysical profile + non-stress test 2021 022 [address], [address], [place], [address], 13:15:23 non-stress test 2021 022 [email or web address] [address], [address], [place], [address], 11:58:04 Medication Orders None recorded. Patient TargetsNo targets recorded. Patient InstructionsNo instructions recorded. Reason for Referral None Reported. Results Created Date Observation Date Name Description Value Unit Range Abnormal Flag Note LastModifiedBy Organization Detail LastModifiedTime 02/23/2002/22/2022 CULTU RE: GROUP B STREP SCREE N, REFLE X SUSCE PTIBI LITY result report SEE RESULT S BELOW Test: Cultu re: Group B Strep , Refle x Susce ptibi lity ([facility]/ [facility] ) Speci men Sourc e: Vagin a/Rec arlyn Speci men Type: Vagin al/Re ctal Speci men Date: 022 1:13 PM Resul t Date: 022 2:11 PM Resul t Statu s: Final resul t Abnor mal: No Resul ting Lab: [facility] [address] [facility] [address] Tel: CULTU RE ----- ----- ----- --- No Group B strep isola fadumo at 2 days (jamison ctive broth enhan cemen t) Not Available [facility] (Lab) [address], [place], [address], 02/25/2022 15:13:19 02/23/20 22 02/22/2022 non-s tress test No observ ation record ed. [email or web address] [facility] [address], [place], [address], 02/22/2022 11:49:08 02/23/20 22 02/22/2022 US, obste tric, bioph ysica l profi le + non-s tress test No observ ation record ed. [email or web address] [facility] [address], [place], [address], 02/22/2022 13:04:11 02/23/20 22 02/22/2022 US, obste tric, bioph ysica l profi le + non-s tress test No observ ation record ed. [email or web address] [address] [facility], [place], [address], 02/24/2022 09:01:16 03/01/20 22 03/01/2022 US, obste tric, bioph ysica l profi le + non-s tress test No observ ation record ed. [email or web address] [facility] [address], [place], [address], 03/01/2022 10:59:56 03/01/20 22 03/01/2022 US, obste tric, bioph ysica l profi le + non-s tress test No observ ation record ed. [email or web address] [address], [place], [address], 03/01/2022 16:07:31 03/01/20 22 03/01/2022 non-s tress test No observ ation record ed. [email or web address] [facility] [address], [place], [address], 03/01/2022 11:31:31 03/06/20 22 03/06/2022 non-s tress test No observ ation record ed. [email or web address] [facility] [address], [place], [address], 03/06/2022 15:09:02 03/06/20 22 03/06/2022 US, obstshahla tric, bioph ysica l profi le + non-s tress test No observ ation record ed. [email or web address] [facility] [address], [place], [address], 03/06/2022 18:48:03 03/06/20 22 03/06/2022 US, obste tric, follo w-up No observ ation record ed. [email or web address] [facility] [address], [place], [address], 03/06/2022 18:48:15 03/06/20 22 03/06/2022 US, obste tric, bioph ysica l profi le + non-s tress test No observ ation record ed. LESLIE [address], [place], [address], 03/06/2022 20:14:57 03/15/20 22 03/15/2022 non-s tress test No observ ation record ed. [facility] [address], [place], [address], 03/15/2022 11:50:35 03/15/20 22 03/15/2022 US, obste tric, bioph ysica l profi le + non-s tress test No observ ation record ed. [email or web address] [facility] [address], [place], [address], 03/15/2022 12:58:32 03/15/20 22 03/15/2022 US, obste tric, bioph ysica l profi le + non-s tress test No observ ation record ed. LESLIE [address], [place], [address], 03/21/2022 20:16:17 Result Notes None recorded. Problems Name Problem SNOMED Code Status Onset Date Resolution Date Notes Provider Name and Address Organization Details Recorded Time Polycyst ic ovary syndrome 830495623 Active 2020 Pushpa Aquino MD [address], [place], [address], [facility] 17:37:18 Insulin resistan ce 085526335 Active 2020 Pushpa Aquino MD [address], [place], [address], [facility] 17:37:29 Pregnanc y 95848691 Completed 202004/12/2022 Hayley martin, [facility] 2 11:51:26 Prediabe virginie 675569720 Completed 2020 early GCT Hayley martin [facility] 2 11:51:18 Laborato ry test result abnormal 162810145 Completed had anti-M and anti-Melanie antibodi es- titers followed last pregnanc y.- Normal on PNL labs & on rpt. No further b/w needed Hayleytamy Langtieh l null, [facility] 2 11:51:18 Laborato ry test result abnormal 951760202 Active had anti-M and anti-Melanie antibodi es- titers followed last pregnanc y.- Normal on PNL labs & on rpt. No further b/w needed Hayley Bohnenstieh l null, [facility] 2 11:51:18 Prediabe virginie 245937707 Active 2020 early GCT Hayley Langtieh l [facility] 2 11:51:18 Placenta circumva llata 5880104 Completed growth Hayley Santananstieh l [facility] 2 11:51:18 Single umbilica l artery 345345419 Completed serial growth, antenata l testing 36w Hayley Bohnenstieh l [facility] 2 11:51:19 Single umbilica l artery 973597437 Active serial growth, antenata l testing 36w Hayley Bohnenstieh l [email or web address], [facility] 2 11:51:19 Placenta circumva llata 2565108 Active growth [facility]ley [facility]ieh [facility] 11:51:18 Depressi ve disorder 36149921 Completed zoloft Hayley Bohnenstieh l null, [facility] 2 11:51:19 Depressi ve disorder 34470186 Active zoloft Hayley Bohnenstieh l [facility] 11:51:19 Problem Notes None recorded. Procedures Surgical History Date Name Laterality Status Provider Name and Address Organization Details Recorded Time 05/02/2020 Date of Last Pap Smear completed [facility] 07/12/2022 09:20:56 11/24/1991 tonsilecto my/adenoid s completed Sheela Mills [facility] 03/01/2022 11:30:07 Imaging Results None recorded. Procedure Notes None recorded. Medical Equipment None Reported. Allergies No known drug allergies Medications Name Sig Start Date Stop Date Status Note LastModified by Organization Details LastModified Time medroxyprog esterone 10 mg tablet TAKE 1 TABLET BY MOUTH ONCE DAILY FOR 10 DAYS 12/26 completed Not Available Not Available Not Available metformin 500 mg tablet Take 1 tablet every day by oral route at bedtime for 14 days. 07/09 completed Not Available Not Available Not Available sertraline 100 mg tablet TAKE 1 TABLET BY MOUTH ONCE DAILY active Not Available Not Available No t Available metoclopram evita 5 mg tablet Take 1 tablet 3 times a day by oral route as needed. 09/17 completed Not Available Not Available Not Available sertraline 50 mg tablet TAKE 1 TABLET BY MOUTH ONCE DAILY DIRECTED 02/12 completed Not Available Not Available Not Available NuvaRing 0.12 mg-0.015 mg/24 hr vaginal USE DIRECTED 12/26 completed Not Available Not Available Not Available Vitamin B-6 05/08 completed Not Available Not Available Not Available Unisom (diphenhydr amine) 05/08 completed Not Available Not Available Not Available Flublok Quad (PF) 180 mcg (45 mcg x 4)/0.5 mL IM syringe PHARMACY ADMINISTE RED 12/26 completed Not Available Not Available Not Available Vitals Date Recorded Body height Body mass index (BMI) Body weight Systolic blood pressure Diastolic blood pressure Provider Name and Address Organization Details Last Updated DateTime 03/15/2022 177.8 cm 41.5 kg/m2 719280.1 9493 g 111 mm[Hg] 78 mm[Hg] [facility] 11:43:16 Date Recorded Body height Body mass index (BMI) Body weight Systolic blood pressure Diastolic blood pressure Provider Name and Address Organization Details Last Updated DateTime 05/08/2022 177.8 cm 36.9 kg/m2 732001.2 4 g 130 mm[Hg] 82 mm[Hg] Saima Anaya [facility] 2 14:39:53 Social History Question Answer Notes LastModified by Organizat ion Details LastModified Time Tobacco Smoking Status Never Smoker Sheela Lina martin, [facility] 03/01/2022 11:29:33 Do You Have An Advance Directive? No Information n ot available 02/22/2022 Are You Blind Or Do You Have Difficulty Seeing? No Information n ot available 02/22/2022 What Is Your Level Of Caffeine Consumption? Occasional Information not available 02/22/2022 How Much Tobacco Do You Chew? None Information not available 02/22/2022 In The 14 Days Before Symptom Onset, Have You Had Close Contact With A Laboratory-confirm ed COVID-19 While That Case Was Ill? No Information n ot available 02/22/2022 In The 14 Days Before Symptom Onset, Have You Had Close Contact With A Person Who Is Under Investigation For COVID-19 While That Person Was Ill? No Information not available 02/22/2022 Have You Been To An Area Known To Be High Risk For COVID-19? No Information not available 02/22/2022 Are You Deaf Or Do You Have Serious Difficulty Hearing? No Information not available 02/22/2022 What Type Of Diet Are You Following? DIABETIC Information n ot available 02/22/2022 What Is The Highest Grade Or Level Of School You Have Completed Or The Highest Degree You Have Received? [id number] Information not available 02/22/2022 Are There Any Guns Present In Your Home? No Information not available 02/22/2022 Do You Use Protection During Sex? No Information not available 02/22/2022 Do You Use Your Seat Belt Or Car Seat Routinely? Yes Information not available 02/22/2022 Do You Have Smoke And Carbon Monoxide Detectors In Your Home? Yes Information not available 02/22/2022 How Much Tobacco Do You Smoke? No Information not available 02/22/2022 Do You Use Sunscreen Routinely? No [email or web address] Information not available 03/01/2022 Have You Used IV Drugs? No Information not available 02/22/2022 Do You Have Difficulty Walking Or Climbing Stairs? No [email or web address] Information not available 03/01/2022 Sex: Unknown Functional Status Question Answer Note LastModified by Organizat ion Details LastModified Time Do you use any illicit or recreational drugs? No Information not available 02/22/2022 What is your level of alcohol consumption? None Information not available 02/22/2022 Are you able to walk? YESWOREST Information not available 02/22/2022 Are you able to care for yourself? 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 No [email or web address] Information not available 03/01/2022 What is your exercise level? Occasional Information not available 02/22/2022 Mental Status Question Answer Note LastModified by Organization D etails LastModified Time Do you feel stressed (tense, restless, nervous, or anxious, or unable to sleep at night)? [id number] Information not available 02/22/2022 Family History Relationship Description Onset Age of this Age Resolved Age Notes LastModified by Organization Details LastModified Time Father Carcinoma in situ of colon [email or web address] Not available 03/01 11:29:31 Father Malignant tumor of colon Not available 2021 11:39:35 Paternal Grandmother Heart disease [email or web address] Not available 2020 14:45:47 Paternal Aunt Female infertility [email or web address] Not available 06/2022 11:29:31 Paternal Aunt Malignant tumor of colon [email or web address] Not available 03/01 11:29:31 Maternal Uncle Female infertility [email or web address] Not available 06/2022 11:29:31 Maternal Grandfather Heart disease [email or web address] Not available 03/01 11:29:31 Paternal Uncle Malignant tumor of colon [email or web address] Not available 03/01 11:29:31 Medical History Condition Response Allergies (Food, seasonal, environmental ) N Other N Breast Cancer N Drug/Latex Allergies/Reactions N Blood Transfusion N Lung Disease N Dermatologic Disorders N Defects or Inherited Disease N Breast Problem N Gestational Diabetes N Hematologic disorders N Anesthesia Complications N History of STI N Deep Vein Thrombosis N Polycystic ovary syndrome Y Anxiety Disorder N Autoimmune disease N Arthritis N Polyps N Infertility N History of abnormal pap N Acid Reflux (GERD) N Cancer N Varicosities N Stroke N Neurologic/Epilepsy N Endometriosis N High Cholesterol N Fibromyalgia N Headaches N Kidney Disease N Heart Problems N Kidney or Bladder Problems N Thyroid Problems N GI Problems N Eating Disorder N Anemia N Art (IVF or FET) N Psychiatric Illness N Ovarian Cancer N Diabetes N Pulmonary (TB, Asthma) N Hepatitis/Liver Disease N Eczema N Urinary Tract Infection N Abuse/Domestic Violence N Asthma N Trauma/Violence N Depression/ depression N Heart Disease N Pre-Eclampsia N Hypertension N Osteoporosis N Thrombophilias N Gynecological History Statement/Question Response Date of Last Mammogram Date of LMP 12/02/2020 On BCP's at Conception? Y N Was last menstrual period normal Y STIs/STDs N HPV Vaccine Y Duration of Flow (days) 7 Current Control Method None Age at First Child 18 Frequency of Cycle (Q days) 36 Sexually Active? Y None Date of DEXA bone scan Age of first menstrual cycle 12 Date of Last Pap Smear 05/02/2020 Sexual Problems? N Desired Control Method None LMP Unknown N Obstetrics History GPAL:G 3 P 2 0 1 2 Type Value Full Term 2 Spontaneous 1 Living 2 Total 3 Past Encounters Encounter ID Performer Location Encounter Start Date Encounter Closed Date Diagnosis/Indication Diagnosis SNOMED-CT Code Diagnosis ICD10 Code Diagnosis Note [id number] Pushpa Aquino MD [facility] [address] [address] 12/26/2020 14:37:31 12/28/2020 16:01:00 Polycystic ovary syndrome 638386060 E28.2 Insulin resistance 54792 5000 E88.81 Trying to conceive 06011 9001 Z31.9 [id number] Pushpa Aquino MD [facility] [address],[place] [address] 06/25/2021 14:29:24 06/25/2021 17:28:50 Complete miscar[facility] 635664905 O03.9 [facility] 642754260 Z31.9 Polycystic ovary syndrome 377130204 E28.2 [id number] MD Vince Sena [address],[place] [address] 07/09/2021 14:46:57 07/10/2021 16:54:10 Gynecologic examination 51398455 Z01.419 [id number] MD Vince Sena [address],[place] [address] 07/26/2021 11:55:54 07/26/2021 12:45:12 Uncertain viability of 398584807 O36.80X0 Z3A.01 [id number] MD Vince Sena [address],[place] [address] 07/31/2021 12:19:48 07/31/2021 13:11:40 Threatened miscarriage 76682256 O20.0 Z3A.01 [id number] MD Vince Sena [address],[place] [address] 08/06/2021 14:00:55 08/06/2021 15:26:25 Threatened miscarriage 84437218 O20.0 Z3A.01 Z3A.08 [id number] MD Vince Sena [address],[place] [address] 08/20/2021 11:17:20 08/21/2021 15:28:02 Routine care 296696791 Z34.91 Laboratory test result abnormal 598112152 R89.9 Prediabetes 541589662 R7 3.03 [id number] MD Vince Sena [address],[place] [address] 08/20/2021 11:17:51 03/26/2024 13:30:35 [id number] Pushpa Aquino MD [facility] [address],[place] [address] 09/17/2021 11:10:33 09/17/2021 17:49:57 Laboratory test result abnormal 692167751 R89.9 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 [id number] Pushpa Aquino MD [facility] [address],[place] [address] 10/22/2021 11:03:23 10/22/2021 12:24:17 screening for malformation 306072014 Z36.3 [id number] Pushpa Aquino MD [facility] [address],[place] [address] 10/22/2021 11:05:30 10/22/2021 13:06:52 Single umbilical artery 343566223 Q27.0 Prediabetes 775454389 R7 3.03 Polycystic ovary syndrome 670784023 E28.2 Placenta circumvallata 8705571 O43.119 Mixed anxi ety and depressive disorder 289017128 F41.8 [id number] Pushpa Aquino MD [facility] [address],[place] [address] 10/26/2021 10:27:47 10/26/2021 11:55:26 [id number] Pushpa Aquino MD [facility] [address],[place] [address] 11/20/2021 13:49:48 11/20/2021 14:52:28 screening 764212421 Z36.2 [id number] Pushpa Aquino MD [facility] [address],[place] [address] 11/30/2021 14:14:50 11/30/2021 15:07:30 Placenta circumvallata 6536923 O43.119 Single umb ilical artery 688882950 Q27.0 [id number] Pushpa Aquino MD [facility] [address],[place] [address] 01/09/2022 10:20:32 01/09/2022 10:57:01 condition affecting obstetrical care of mother 678502338 O35.9XX0 Z3A.30 [id number] Pushpa Aquino MD [facility] [address],[place] [address] 01/09/2022 10:21:02 01/11/2022 11:44:14 Single umbilical artery 249806115 Q27.0 Placenta circumvallata 5348931 O43.119 [id number] Pushpa Aquino MD [facility] [address],[place] [address] 01/23/2022 11:11:10 01/23/2022 11:45:54 Placenta circumvallata 5931623 O43.119 Single umb ilical artery 737020628 Q27.0 Depressive disorder 3548 9007 F32.A [id number] MD Cecilia [place] [address],[place] [address] 02/08/2022 12:02:09 02/08/2022 12:56:40 Single umbilical artery 128877302 Q27.0 Placenta circumvallata 9081854 O43.119 [id number] Pushpa Aquino MD [facility] [address],[place] [address] 02/08/2022 12:03:37 02/08/2022 12:37:36 condition affecting obstetrical care of mother 398258184 O35.9XX0 Z3A.34 [id number] Vikram Arias MD [facility] [address],[place] [address] 02/22/2022 10:55:52 02/22/2022 12:16:01 Routine care 358271109 Z34.83 [id number] MD Vince Cornejo [address],[place] [address] 02/22/2022 11:21:33 02/22/2022 11:52:41 condition affecting obstetrical care of mother 340539384 O36.93X0 [id number] MD Vince Cornejo [address],[place] [address] 02/22/2022 11:21:58 02/22/2022 13:12:47 Single umbilical artery 970749037 Q27.0 O43.119 Z3A.36 cond ition affecting obstetrical care of mother 002067267 O36.93X0 [id number] Liset Armstrong [facility] [address],[place] [address] 03/01/2022 10:28:09 03/01/2022 11:47:40 Routine care 222674582 Z34.93 [id number] Vikram Arias MD [facility] [address],[place] [address] 03/01/2022 10:26:31 03/01/2022 11:37:21 Placenta circumvallata 3462949 O43.119 Q27.0 Z3A.37 [id number] Vikram Arias MD [facility] [address],[place] [address] 03/01/2022 10:27:54 03/01/2022 11:08:14 Placenta circumvallata 7578729 O43.119 Q27.0 Z3A.37 [id number] Pushpa Aquino MD [facility] [address],[place] [address] 03/06/2022 14:27:41 03/06/2022 15:09:53 Placenta circumvallata 1966951 O43.119 Q27.0 Z3A.37 [id number] Pushpa Aquino MD [facility] [address],[place] [address] 03/06/2022 14:28:01 03/06/2022 15:57:01 condition affecting obstetrical care of mother 181459267 O35.9XX0 O43.113 Z3A.38 [id number] Pushpa Aquino MD [facility] [address],[place] [address] 03/06/2022 14:28:14 03/06/2022 16:21:54 Routine care 941714090 Z34.91 [id number] Pushpa Aquino MD [facility] [address],[place] [address] 03/15/2022 10:55:30 03/15/2022 12:00:35 Single umbilical artery 094804792 Q27.0 O43.119 Z3A.36 Placenta circumvallata 4997583 O43.119 Q27.0 Z3A.37 [id number] Pushpa Aquino MD [facility] [address],[place] [address] 03/15/2022 10:56:48 03/15/2022 11:58:04 Placenta circumvallata 2995601 O43.119 Q27.0 Z3A.37 [id number] Pushpa Aquino MD [facility] [address],[place] [address] 03/15/2022 10:57:14 03/15/2022 12:56:11 Single umbilical artery 692788620 Q27.0 O43.119 Z3A.39 [id number] Vikram Arias MD [facility] [address],[place] [address] 03/25/2022 10:26:12 03/26/2022 12:56:28 [id number] Pushpa Aquino MD [facility] [address],[place] [address] 05/08/2022 14:32:06 05/08/2022 15:24:24 care 732208701 Z39.2 Health Concerns Section Related Observation LastModified by Organization Detai ls LastModified Time None Recorded Concern Status LastModified by Organization Details LastModified Time None Recorded Advance Directives Directive N: Payers Insurance Date Sequence Insurance Name Policy Number Policy León Covered Member ID León Member ID Guarantor Name 07/09/2022 1 [place] [id number] Flo Carias [id number] Flo Carias 05/13/2022 PAYMENT PLAN Flo Carias 06/07/2023 PAYMENT PLAN Flo Carias 07/09/2022 1 [place] Flo Carias [id number] Flo Carias Notes Date Note Type Note Provider Name and Address Organization Details Recorded Time 05/08/2022 text/html Patient is a 31yo presenting for a 4 week visit. She had a on 03/18 at 40 weeks GA. Baby [place] doing great. breast and bottle feeding. Doing well overall. Normal lochia. Pain- *none. Bowel and bladder function normal. Dover score 3 Annual due:next month Concerns: none Pushpa Aquino MD [address], [place], [address], [facility] 05/08/2022 15:00:44 OBGyn Episode Ob Episode Information Episode Created Date Number of Fetuses Patient Bloodtype Patient rh Status Prepregnancy Weight lbs Domestic Partner Domestic Partner Phone Father Name Quality Manager Status 12/26/19 21 1 CLOSED Fetus Data First Name Last Name Admitted to NICU Weight (g) Sex Living Outcome Pediatric Complications Fetus ID Race Codes Race Delivery Type 4053.75 1704 F Full Term 7638 Vaginal Delivery Kenn Calculation Initial Kenn Date Initial Exam Date Initial Exam Provider Initial Ultrasound Date Last Menstrual Period Date Ultra Sound Weeks Gestation 0 Eighteen To Twenty Week Kenn Update Ultra Sound Date Fundal Height At Umbil Quickening Date Ultra Sound Latest Weeks Gestation Final Kenn Confirmed By Final Kenn Confirmed Date Final Kenn Date Ultra Sound Latest Days Gestation 0 0 Menstrual History Last Menstrual Date Menses Monthly On Bcp Conception Prior Menses Frequency Hcg Plus Date Menarche Onset Age Delivery Information Delivery Date Delivery Type Labor Anesthesia Weeks Gestation Incision Type Labor Labor Length Hrs Delivered By Post Complications Tubal Sterilization Discharge Date Comments 8 41 antibiod y M? Discharge Information Feeding Method Contraceptive Method Maternal HG B and HCT Levels Ob Episode Information Episode Created Date Number of Fetuses Patient Bloodtype Patient rh Status Prepregnancy Weight lbs Domestic Partner Domestic Partner Phone Father Name Quality Manager Status 06/25/20 21 1 CLOSED Fetus Data First Name Last Name Admitted to NICU Weight (g) Sex Living Outcome Pediatric Complications Fetus ID Race Codes Race Delivery Type , Spontane ous [id number] Kenn Calculation Initial Kenn Date Initial Exam Date Initial Exam Provider Initial Ultrasound Date Last Menstrual Period Date Ultra Sound Weeks Gestation 0 Eighteen To Twenty Week Kenn Update Ultra Sound Date Fundal Height At Umbil Quickening Date Ultra Sound Latest Weeks Gestation Final Kenn Confirmed By Final Kenn Confirmed Date Final Kenn Date Ultra Sound Latest Days Gestation 0 0 Menstrual History Last Menstrual Date Menses Monthly On Bcp Conception Prior Menses Frequency Hcg Plus Date Menarche Onset Age Delivery Information Delivery Date Delivery Type Labor Anesthesia Weeks Gestation Incision Type Labor Labor Length Hrs Delivered By Post Complications Tubal Sterilization Discharge Date Comments Discharge Information Feeding Method Contraceptive Method Maternal HG B and HCT Levels Ob Episode Information Episode Created Date Number of Fetuses Patient Bloodtype Patient rh Status Prepregnancy Weight lbs Domestic Partner Domestic Partner Phone Father Name Quality Manager Status 08/20/20 21 1 A Negative 222 CLOSED Fetus Data First Name Last Name Admitted to NICU Weight (g) Sex Living Outcome Pediatric Complications Fetus ID Race Codes Race Delivery Type [place] [phone] 5 M true Full Term [id number] Vaginal Delivery Problems Problem Notes Rhogam 06/08/21 Problem Name Start Date End Date Resolution Snomed Code Not e Placenta circumvallata 2431179 growth US Single umbilical artery 243221 001 serial growth, testing 36w Prediabetes 08/22/[id number] Laboratory test result abnormal [id number] had anti-M and anti-Melanie antibodies- titers followed last .- Normal on PNL labs & on rpt. No further b/w needed Depressive disorder MEDICATION [id number] zoloft Kenn Calculation Initial Kenn Date Initial Exam Date Initial Exam Provider Initial Ultrasound Date Last Menstrual Period Date Ultra Sound Weeks Gestation 03/18/2022 08/20/2021 07/26/2021 06/05/2021 6 Eighteen To Twenty Week Kenn Update Ultra Sound Date Fundal Height At Umbil Quickening Date Ultra Sound Latest Weeks Gestation Final Kenn Confirmed By Final Kenn Confirmed Date Final Kenn Date Ultra Sound Latest Days Gestation 0 [id number] 08/22/2021 03/18/20 22 0 Pre- Flowsheet Flowsheet Date 08/20/2021 Renteria Score Blood Edema Fundus Height Fundus Units Glucose Ketones Leukocytes Nitrite Labor Signs Protein Cervic Dilation Cervic Effacement Cervic Station neg none trace Type Weight in lbs Pre/Post Dialysis Refused Weight 227.263958717429 BP Diastolic BP Location Tested BP Systolic BP Type 79 127 Fetus Heart Rate Present A 165 Fetus Movement A No Comments Flo is a presenti ng for care. 9w6d by 6 week US. A1C was 5.7, will do early GCT. Has had COVID vaccine. She reports she had anti-M and anti- Melanie titers followed last . Discussed NIPT, will decide. Routine care. Nervous because of 2 sabs. Flowsheet Date 08/20/2021 Renteria Score Blood Edema Fundus Height Fundus Units Glucose Ketones Leukocytes Nitrite Labor Signs Protein Cervic Dilation Cervic Effacement Cervic Station Type Weight in lbs Pre/Post Dialysis Refused BP Diastolic BP Location Tested BP Systolic BP Type Fetus Heart Rate Present Fetus Movement Comments Flowsheet Date 09/17/2021 Renteria Score Blood Edema Fundus Height Fundus Units Glucose Ketones Leukocytes Nitrite Labor Signs Protein Cervic Dilation Cervic Effacement Cervic Station neg none trace Type Weight in lbs Pre/Post Dialysis Refused Weight 221.791943057926 BP Diastolic BP Location Tested BP Systolic BP Type 84 145 80 142 80 128 Fetus Heart Rate Present A 150 Fetus Movement A Yes Comments Doing well, feeling a lot be tter already on zoloft. EPDS improved from 18 to 13. FOB no longer around. Antibody screen neg this last time, but has history of anti M and Melanie, will repeat for certainty. Depression/anxiety precautions given. Flowsheet Date 10/22/2021 Renteria Score Blood Edema Fundus Height Fundus Units Glucose Ketones Leukocytes Nitrite Labor Signs Protein Cervic Dilation Cervic Effacement Cervic Station Type Weight in lbs Pre/Post Dialysis Refused BP Diastolic BP Location Tested BP Systolic BP Type Fetus Heart Rate Present Fetus Movement Comments Flowsheet Date 10/22/2021 Renteria Score Blood Edema Fundus Height Fundus Units Glucose Ketones Leukocytes Nitrite Labor Signs Protein Cervic Dilation Cervic Effacement Cervic Station neg none trace Type Weight in lbs Pre/Post Dialysis Refused Weight 233.901569051156 BP Diastolic BP Location Tested BP Systolic BP Type 80 126 Fetus Heart Rate Present A 140 Fetus Movement A Yes Comments Doing well. Mood much better , feels like herself again. Taking zoloft and doing counseling. US today anatomy complete except cardiac septum and plantar feet, and wnl except circumvallate placenta and 2VC. Discussed all findings with pt and plan for growth and ante testing at 36w if not indicated before. Will reepat US next visit. Flowsheet Date 10/26/2021 Renteria Score Blood Edema Fundus Height Fundus Units Glucose Ketones Leukocytes Nitrite Labor Signs Protein Cervic Dilation Cervic Effacement Cervic Station Type Weight in lbs Pre/Post Dialysis Refused BP Diastolic BP Location Tested BP Systolic BP Type Fetus Heart Rate Present Fetus Movement Comments Flowsheet Date 11/20/2021 Renteria Score Blood Edema Fundus Height Fundus Units Glucose Ketones Leukocytes Nitrite Labor Signs Protein Cervic Dilation Cervic Effacement Cervic Station Type Weight in lbs Pre/Post Dialysis Refused BP Diastolic BP Location Tested BP Systolic BP Type Fetus Heart Rate Present Fetus Movement Comments Flowsheet Date 11/30/2021 Renteria Score Blood Edema Fundus Height Fundus Units Glucose Ketones Leukocytes Nitrite Labor Signs Protein Cervic Dilation Cervic Effacement Cervic Station neg trace 29 none trace Type Weight in lbs Pre/Post Dialysis Refused Weight 248.157787272396 BP Diastolic BP Location Tested BP Systolic BP Type 82 128 Fetus Heart Rate Present A 150 Fetus Movement A Yes Comments Doing ok except stressful we ek. Had falling out with mom. Ex has new gf. Not sure who will be there as her support person. considering outsole splicer, but expensive. not sure how she will even get home from hospital. Passed her early GCT, repeat at 28 weeks with Rhogam. Growth US next. Denies Si/HI, does not want to increase zoloft. support given. Flowsheet Date 01/09/2022 Renteria Score Blood Edema Fundus Height Fundus Units Glucose Ketones Leukocytes Nitrite Labor Signs Protein Cervic Dilation Cervic Effacement Cervic Station Type Weight in lbs Pre/Post Dialysis Refused BP Diastolic BP Location Tested BP Systolic BP Type Fetus Heart Rate Present Fetus Movement Comments Flowsheet Date 01/09/2022 Renteria Score Blood Edema Fundus Height Fundus Units Glucose Ketones Leukocytes Nitrite Labor Signs Protein Cervic Dilation Cervic Effacement Cervic Station neg trace 32 none trace Type Weight in lbs Pre/Post Dialysis Refused Weight 261.87538900684 BP Diastolic BP Location Tested BP Systolic BP Type 80 124 Fetus Heart Rate Present A 150 Fetus Movement A Yes Comments Doing better than last visit . missed visit due to snow. Mood better, found sources of support. US today 82%. Doing 28w labs this week with Rhogam. Will do Tdap soon. Flowsheet Date 01/23/2022 Renteria Score Blood Edema Fundus Height Fundus Units Glucose Ketones Leukocytes Nitrite Labor Signs Protein Cervic Dilation Cervic Effacement Cervic Station neg none 36 Type Weight in lbs Pre/Post Dialysis Refused Weight 264.434171814037 BP Diastolic BP Location Tested BP Systolic BP Type 84 119 Fetus Heart Rate Present A 140 Fetus Movement A Yes Comments Doing well. Had a fall over the weekend, seen in triage. No symptoms since fall. Good FM. Needs refill on zoloft. Rhogam done. Tdap this week. Flowsheet Date 02/08/2022 Renteria Score Blood Edema Fundus Height Fundus Units Glucose Ketones Leukocytes Nitrite Labor Signs Protein Cervic Dilation Cervic Effacement Cervic Station Type Weight in lbs Pre/Post Dialysis Refused BP Diastolic BP Location Tested BP Systolic BP Type Fetus Heart Rate Present Fetus Movement Comments Flowsheet Date 02/08/2022 Renteria Score Blood Edema Fundus Height Fundus Units Glucose Ketones Leukocytes Nitrite Labor Signs Protein Cervic Dilation Cervic Effacement Cervic Station neg trace 37 none trace Type Weight in lbs Pre/Post Dialysis Refused Weight 273.289133197994 BP Diastolic BP Location Tested BP Systolic BP Type 76 122 Fetus Heart Rate Present A 130 Fetus Movement A Yes Comments Diong well. Great FM. Ante t esting to start at 36w. Growth today for 2VC 62%. Tdap is done. GBS next visit. Pt prefers no IOL unless necessary. Flowsheet Date 02/22/2022 Renteria Score Blood Edema Fundus Height Fundus Units Glucose Ketones Leukocytes Nitrite Labor Signs Protein Cervic Dilation Cervic Effacement Cervic Station 36 2cm 50% -3 Type Weight in lbs Pre/Post Dialysis Refused Weight 277.316952221945 BP Diastolic BP Location Tested BP Systolic BP Type 84 L arm 136 sitting Fetus Heart Rate Present A 145 Fetus Movement Comments no complaints, interested in 39 week induction. Favorable cervical exam. Flowsheet Date 02/22/2022 Renteria Score Blood Edema Fundus Height Fundus Units Glucose Ketones Leukocytes Nitrite Labor Signs Protein Cervic Dilation Cervic Effacement Cervic Station Type Weight in lbs Pre/Post Dialysis Refused BP Diastolic BP Location Tested BP Systolic BP Type Fetus Heart Rate Present Fetus Movement Comments Flowsheet Date 02/22/2022 Renteria Score Blood Edema Fundus Height Fundus Units Glucose Ketones Leukocytes Nitrite Labor Signs Protein Cervic Dilation Cervic Effacement Cervic Station Type Weight in lbs Pre/Post Dialysis Refused BP Diastolic BP Location Tested BP Systolic BP Type Fetus Heart Rate Present Fetus Movement Comments Flowsheet Date 03/01/2022 Renteria Score Blood Edema Fundus Height Fundus Units Glucose Ketones Leukocytes Nitrite Labor Signs Protein Cervic Dilation Cervic Effacement Cervic Station Type Weight in lbs Pre/Post Dialysis Refused BP Diastolic BP Location Tested BP Systolic BP Type Fetus Heart Rate Present Fetus Movement Comments Flowsheet Date 03/01/2022 Renteria Score Blood Edema Fundus Height Fundus Units Glucose Ketones Leukocytes Nitrite Labor Signs Protein Cervic Dilation Cervic Effacement Cervic Station Type Weight in lbs Pre/Post Dialysis Refused BP Diastolic BP Location Tested BP Systolic BP Type Fetus Heart Rate Present Fetus Movement Comments Flowsheet Date 03/01/2022 Renteria Score Blood Edema Fundus Height Fundus Units Glucose Ketones Leukocytes Nitrite Labor Signs Protein Cervic Dilation Cervic Effacement Cervic Station neg trace trace Type Weight in lbs Pre/Post Dialysis Refused Weight 279.634426390672 BP Diastolic BP Location Tested BP Systolic BP Type 80 119 Fetus Heart Rate Present Fetus Movement A Yes Comments PATIENT STATES THAT HAVING C ONTRACTIONS AND SWELLING. declines MIL unless necessary, doing well BPP8/8, declined cervical exam, f/u one week, precautions Flowsheet Date 03/06/2022 Renteria Score Blood Edema Fundus Height Fundus Units Glucose Ketones Leukocytes Nitrite Labor Signs Protein Cervic Dilation Cervic Effacement Cervic Station Type Weight in lbs Pre/Post Dialysis Refused BP Diastolic BP Location Tested BP Systolic BP Type Fetus Heart Rate Present Fetus Movement Comments Flowsheet Date 03/06/2022 Renteria Score Blood Edema Fundus Height Fundus Units Glucose Ketones Leukocytes Nitrite Labor Signs Protein Cervic Dilation Cervic Effacement Cervic Station Type Weight in lbs Pre/Post Dialysis Refused BP Diastolic BP Location Tested BP Systolic BP Type Fetus Heart Rate Present Fetus Movement Comments Flowsheet Date 03/06/2022 Renteria Score Blood Edema Fundus Height Fundus Units Glucose Ketones Leukocytes Nitrite Labor Signs Protein Cervic Dilation Cervic Effacement Cervic Station neg trace 39 none trace Type Weight in lbs Pre/Post Dialysis Refused Weight 281.402746636256 BP Diastolic BP Location Tested BP Systolic BP Type 78 116 Fetus Heart Rate Present A 140 Fetus Movement A Yes Comments Doing well. Great FM. BPP 8/ 10, 2 off for movement, but has had great movement all day. EFW 60%. Precautions given. Desires IOL around 40w if undelivered. Will schedule. Flowsheet Date 03/15/2022 Renteria Score Blood Edema Fundus Height Fundus Units Glucose Ketones Leukocytes Nitrite Labor Signs Protein Cervic Dilation Cervic Effacement Cervic Station Type Weight in lbs Pre/Post Dialysis Refused BP Diastolic BP Location Tested BP Systolic BP Type Fetus Heart Rate Present Fetus Movement Comments Flowsheet Date 03/15/2022 Renteria Score Blood Edema Fundus Height Fundus Units Glucose Ketones Leukocytes Nitrite Labor Signs Protein Cervic Dilation Cervic Effacement Cervic Station neg none none trace 3cm 50% Type Weight in lbs Pre/Post Dialysis Refused Weight 289.256164432799 BP Diastolic BP Location Tested BP Systolic BP Type 78 111 Fetus Heart Rate Present A 140 Fetus Movement A Yes Comments Doing well. Good FM. IOL jhonathan eduled friday. NST reactive. Discussed induction, questions answered. Precautions given. Flowsheet Date 03/15/2022 Renteria Score Blood Edema Fundus Height Fundus Units Glucose Ketones Leukocytes Nitrite Labor Signs Protein Cervic Dilation Cervic Effacement Cervic Station Type Weight in lbs Pre/Post Dialysis Refused BP Diastolic BP Location Tested BP Systolic BP Type Fetus Heart Rate Present Fetus Movement Comments Flowsheet Date 03/25/2022 Renteria Score Blood Edema Fundus Height Fundus Units Glucose Ketones Leukocytes Nitrite Labor Signs Protein Cervic Dilation Cervic Effacement Cervic Station Type Weight in lbs Pre/Post Dialysis Refused BP Diastolic BP Location Tested BP Systolic BP Type Fetus Heart Rate Present Fetus Movement Comments Menstrual History Last Menstrual Date Menses Monthly On Bcp Conception Prior Menses Frequency Hcg Plus Date Menarche Onset Age 0706/05/2021 Genetic Screening And Infection History Question Response Note Mental Retardation/Autism false Patient's Age Will Be 35 Years Or Older At Estim ated Date of Delivery false Thalassemia (Equatorial Guinean, Maltese, Mediterranean, Or Background): MCV < 80 false Neural Tube Defect (Meningomyelocele, Spina Bifi da, Or Anencephaly) false Congenital Heart Defect false Down Syndrome false Samir-Sachs (eg, Church, Cajun, Tuvaluan-[place]) f alse Gillian Disease false Sickle Cell Disease Or Trait () false Hemophilia Or Other Blood Disorders false Muscular Dystrophy false Cystic Fibrosis false [place]'s Chorea false Intellectual Disability/Autism false If Yes, Was Person Tested For Fragile X? false Other Inherited Genetic Or Chromosomal Disorder false Maternal Metabolic Disorder (eg, Type 1 Diabetes , PKU) false Patient Or Baby's Father Had A Child With Defects Not Listed Above false Recurrent Loss, Or A Stillbirth false Medications (including Suppl ements, Vitamins, Herbs, OTC Drugs), Illicit/Recreational Drugs, Alcohol false If Yes, Agent(s) And Strength/Dosage false Any Other Genetic History false Live With Someone With TB Or Exposed To TB false Patient Or Partner Has History Of Genital Herpes false Rash Or Viral Illness Since Last Menstrual Perio d false History Of STD, Gonorrhea, Chlamydia, HPV, Syphi lis false Other Infection History false History of HIV false History of Hepatitis false Prior GBS-infected child false Hemoglobinopathy Or Carrier false Other Structural Defect false Recent Travel History Outside of Country false Delivery Information Delivery Date Delivery Type Labor Anesthesia Weeks Gestation Incision Type Labor Labor Length Hrs Delivered By Post Complications Tubal Sterilization Discharge Date Comments 2 Induce d Regional-Ep idural 40 false Pushpa Aquino MD Placenta Circumval kriss & Single Umbilical Artery Discharge Information Feeding Method Contraceptive Method Maternal HG B and HCT Levels Breast
--- NOTE | 2025-05-25 22:13 | ECG_ITS ---
Test Date: 2025-05-25 22:18:17 Measurements Intervals [place] Rate: 133 P: 41 DC: 152 QRS: 77 QRSD: 85 T: 65 QT: 332 QTc: 494 Interpretive Statements SINUS TACHYCARDIA NONSPECIFIC T-WAVE ABNORMALITY ABNORMAL RHYTHM ECG No previous ECG available for comparison Electronically Signed On 05-26-2025 16:38:56 CDT by Nel Fritz
[2025-05-25 22:30] LABS: Hematocrit 42.9 % (37.0-47.0); Hemoglobin 13.8 g/dL (12.0-15.0); Immature Granulocyte Percent A 0.3 % (0-0.5); Lymphocytes Absolute Auto 1.55 K/mm3 (0.9-3.2); Mean Corpuscular HGB Conc 32.2 g/dl (32-36); Mean Corpuscular Hemoglobin 26.9 pg (26-34); Mean Corpuscular Volume 83.6 fl (80-100); Nucleated Red Blood Cells Absolute Auto 0.000 K/mm3 (0.0-0.012); Nucleated Red Blood Cells Perc 0.0 % (0.0-0.2); Platelet Count Result 255 k/mm3 (150-375); Red Blood Count 5.13 M/mm3 (4.2-5.4); White Blood Count 10.2 K/mm3 (4.5-10.0)
[2025-05-25 22:40] VITALS: PULSE 105; RESP 30; O2SAT 95
[2025-05-25 22:40] LABS: Alanine Aminotransferase 49 U/L (6-35); Albumin Level 4.6 g/dL (3.5-5.1); Alkaline Phosphatase 64 U/L (38-126); Anion Gap 12 mmol/L (4-12); Aspartate Amino Transferase 35 U/L (14-36); Bilirubin,Total 0.4 mg/dL (0.2-1.3); Blood Urea Nitrogen 13 mg/dL (7-17); Calcium 9.1 mg/dL (8.4-10.2); Carbon Dioxide 25 mmol/L (22-30); Chloride 106 mmol/L (98-107); Estimated CRCL calculation 109 ml/min; Estimated Glomerular Filt Rate > 60; Glucose 105 mg/dL (65-110); Potassium 3.8 mmol/L (3.4-5.0); Sodium 143 mmol/L (137-145); Total Protein 7.8 g/dL (6.3-8.2)
[2025-05-25 22:53] VITALS: PULSE 100; RESP 25; O2SAT 99
[2025-05-25 23:02] VITALS: PULSE 102; RESP 22; O2SAT 95
[2025-05-25 23:09] VITALS: BP 160/105; BP 165/120; PULSE 99
[2025-05-25 23:11] VITALS: BP 151/107; PULSE 112
[2025-05-25 23:24] LABS: BEDSIDEPREGUCG Negative (Negative)
[2025-05-25 23:45] LABS: INR 0.9; Prothrombin Time 12.1 Seconds (11.1-14.7)
[2025-05-25 23:46] LABS: Partial Thromboplastin Time 28.3 Seconds (22.3-36.8)
[2025-05-26] VITALS (15 sets, daily range): BP systolic 140–144; BP diastolic 83–103; PULSE 96–118; RESP 12–27; TEMP 36.9; O2SAT 94–100
--- NOTE | 2025-05-26 00:15 | ED_ITS ---
HPI - Arrhythmia/Palpitations General Chief Complaint: Arrhythmia/Palpitations Stated Complaint: palpations, shortness of breath Time Seen by Provider: 05/25/25 23:00 Source: patient Mode of arrival: ambulatory Limitations: no limitations History of Present Illness HPI narrative: This is a 34 year old female that presents to the ER for palpitations. Ongoing over the couple of months. Reports she has not seen anyone for this complaint yet. Reports she has also had some shortness of breath, dizziness. Denies current symptoms. Related Data Home Medications ?Medication ?Instructions ?Recorded ?Confirmed ?Last Taken ?Type prenat.vits,rafat,[id number] 1 tablet PO DAILY 03/17/22 03/17/22 03/11/22 08:00 History sertraline 50 mg tablet (Zoloft) 50 mg PO DAILY 03/17/22 03/17/22 03/17/22 08:00 History Allergies Allergy/AdvReac Type Severity Reaction Status Date / Time adhesive tape Allergy Rash Verified 05/25/25 22:07 Review of Systems 2 Review of Systems: All systems reviewed & are unremarkable except as noted in HPI and below PMFSH Past Medical History Medical History (Updated 05/26/25 @ 02:13 by Paz Curtis PA-C) History of PCOS Family History Family History (Updated 02/19/22 @ 12:45 by Joan Tadeo RN) Mother Skin cancer Sibling ADHD Sibling Autism Father Colon cancer Social History Social History Smoking status: Never smoker Second hand tobacco smoke exposure: No Substance use: never Spiritual care concerns: No Exam 2 Narrative: GENERAL: Well-appearing, well-nourished, and in no acute distress. HEAD: Normocephalic, atraumatic. EYES: EOMI. ENT: Nares clear, no rhinorrhea or epistaxis. Mucous membranes moist. Oropharynx without tonsillar hypertrophy exudate or other lesions. CHEST: Clear to auscultation. No respiratory distress. No wheezes rales or rhonchi HEART: Regular rate and rhythm. No murmur heard. Normal peripheral pulses. EXTREMITIES: Normal range of motion. No edema. SKIN: Warm, dry, no rash. NEURO: No focal deficits. Alert and oriented x3. PSYCH: Normal mood and affect Course Vital Signs Vital signs: Vital Signs Temperature 97.3 F L 05/25/25 22:07 Pulse Rate 110 H 05/25/25 22:07 Respiratory Rate 20 05/25/25 22:07 Blood Pressure 150/112 H 05/25/25 22:07 Pulse Oximetry 98 05/25/25 22:07 Oxygen Delivery Room Air 05/25/25 22:07 Temperature 97.3 F L 05/25/25 22:07 Pulse Rate 99 05/26/25 01:00 Respiratory Rate 23 H 05/26/25 01:00 Blood Pressure 140/83 05/26/25 00:14 Pulse Oximetry 94 05/26/25 01:00 Oxygen Delivery Room Air 05/25/25 22:07 MDM - Arrhythmia/Palpitations MDM Narrative Medical decision making narrative: Patient presents to the emergency department for palpitations, which have been ongoing for several months. She has not been evaluated for this yet. Tachycardic upon arrival, this normalized with IV fluids. CBC with mild leukocytosis to 10.2. Hemoglobin is normal. Metabolic panel without concerning findings. test is negative. D-dimer is not elevated. TSH elevated, but free T4 is normal. Chest x-ray without acute cardiopulmonary abnormality. Patient updated on her workup and agrees with plan of care. She is to follow up with her primary provider for further evaluation. She was given warnings to return to the ER Differential Diagnosis Differential diagnosis: Likely palpitations, sinus tachycardia, ventricular premature beats and other (Dehydration, electrolyte derangement, hypothyroidism, subclinical hypothyroidism) Lab Data Attestation: I reviewed the patient's lab results. 05/25/25 22:23 05/25/25 22:23 Labs: Lab Results 05/25/25 05/25/25 05/25/25 Range/Units 22:16 22:23 23:22 WBC 10.2 H (4.5-10.0) K/mm3 RBC 5.13 (4.2-5.4) M/mm3 Hgb 13.8 (12.0-15.0) g/dL Hct 42.9 (37.0-47.0) % MCV 83.6 (80-100) fl MCH 26.9 (26-34) pg MCHC 32.2 (32-36) g/dl RDW 12.5 (11.5-14.5) % Plt Count 255 (150-375) k/mm3 MPV 9.1 (7.4-10.4) fl Immature Gran % (Auto) 0.3 (0-0.5) % Neut % (Auto) 76.8 H (45.5-73.1) % Lymph % (Auto) 15.2 L (18.3-44.2) % [place] % (Auto) 6.2 (2.6-8.5) % Eos % (Auto) 1.2 (0-4.4) % Baso % (Auto) 0.3 (0.2-1.2) % Lymph # (Auto) 1.55 (0.9-3.2) K/mm3 [place] # (Auto) 0.6 (0.1-0.6) K/mm3 Eos # (Auto) 0.1 (0-0.3) K/mm3 Baso # (Auto) 0.0 (0.0-0.1) K/mm3 Abs Immat Gran (auto) 0.03 (0.00-0.031) K/mm3 Absolute Neuts (auto) 7.8 H (1.3-6.7) K/mm3 Absolute Nucleated RBC 0.000 (0.0-0.012) K/mm3 Nucleated RBC % 0.0 (0.0-0.2) % PT 12.1 (11.1-14.7) Seconds INR 0.9 APTT 28.3 (22.3-36.8) Seconds D-Dimer 0.37 (<0.48) ug/mL Sodium 143 (137-145) mmol/L Potassium 3.8 (3.4-5.0) mmol/L Chloride 106 (98-107) mmol/L Carbon Dioxide 25 (22-30) mmol/L Anion Gap 12 (4-12) mmol/L BUN 13 (7-17) mg/dL Creatinine 0.98 (0.7-1.0) mg/dL Estim Creat Clear Calc 109 ml/min Estimated GFR > 60 (59 - ) Glucose 105 (65-110) mg/dL POC Capillary Glucose 112 H (65-105) mg/dl Calcium 9.1 (8.4-10.2) mg/dL Total Bilirubin 0.4 (0.2-1.3) mg/dL AST 35 (14-36) U/L ALT 49 H (6-35) U/L Alkaline Phosphatase 64 (38-126) U/L Total Protein 7.8 (6.3-8.2) g/dL Albumin 4.6 (3.5-5.1) g/dL TSH (Reflex) 6.430 H (0.465-4.68) uIU/mL Free T4 0.92 (0.78-2.19) ng/dL Total T3 Pending POC Urine HCG, Qual Negative (Negative) Imaging Data Radiologist's impression: ITS Impressions Chest X-Ray 05/25/25 22:44 IMPRESSION: No acute cardiopulmonary pathology. ECG Data EKG #1: ECG completion date: 05/25/25 EKG Interpretation: tachycardia, sinus rhythm, no ST changes and normal QT Critical Care Time Critical Care Time Critical Care Time: No Discharge Plan Discharge Clinical Impression: Palpitations, Elevated TSH Patient Disposition: Home Condition: Stable Instructions: Heart Palpitations (ED) Additional Instructions: Return to the emergency department if you experience fever, chest pain, shortness of breath, abdominal pain with nausea and vomiting, weakness, numbness, you pass out, or any other symptoms that are concerning to you. Follow up with your primary care doctor for further evaluation Patient Language: Welsh Prescriptions: No Action sertraline [Zoloft] 50 mg Tablet 50 mg PO DAILY prenat.vits,rafat,uhc-sdzc-nltif Tablet 1 tablet PO DAILY Follow-up/Referrals: Mark Ortega MD [Primary Care Provider] -
[2025-05-26] MEDS: SODIUM CHLORIDE 0.9% IV 1,000 ML 999 ML IV CONT (00:28)
[2025-05-26 01:00] LABS: Thyroid Stimulating Hormone Reflex 6.430 uIU/mL (0.465-4.68)
[2025-05-26 01:28] LABS: Free T4 Free Thyroxine Reflex 0.92 ng/dL (0.78-2.19)
[2025-05-26 02:17] LABS: Total Triiodothyronine (T3) 1.23 NG/ML (0.82-1.58)
== END 2025-05-26 02:54 | disposition home or self-care (01) ==
PROVIDERS: Student in an Organized Health Care Education/Training Program; Emergency Provider Physician Assistant; PCP Family Medicine Adolescent Medicine
DX: R00.2 Palpitations (principal); R94.6 Abnormal results of thyroid function studies; R06.02 Shortness of breath; R42 Dizziness and giddiness
CPT/HCPCS: 36415; 71046; 80053; 81025; 82948; 84439; 84443; 84480; 85025; 85380; 85610; 85730; 93005; 96360; 99284; J7030

== ENCOUNTER 2025-06-14 09:50 | Outpatient (CLI) | payer OTHER, SELFPAY ==
--- OUTSIDE RECORDS SUMMARY | 2025-06-14 09:59 | XMS_ITS | Data Portability ---
Author Organization [facility] Address [address] [place] [address] Care Team Providers Care Metal Fitter Name Role Phone GALA ZHANG Primary Care Provider Assessment Encounter Date Assessment Date Assessment LastModified by Organization Details LastModified Time 05/08/2022 05/08/2022 Normal exam May resume normal activities contraceptive plan-- abstinence FU for WWE 2 mos [email or web address] Not available 05/08/2022 14:58:06 Plan of Treatment Reminders Order Date Submit Date Provider Last Modified By Organization Details Last Modified Time Details Appointments None recorded. Lab None recorded. Referral None recorded. Procedures None recorded. Surgeries None recorded. Imaging US, obstetric, biophysical profile + non-stress test 2021 022 [email or web address] [address], [address], [place], [address], 13:15:23 non-stress test 2021 022 [address], [address], [place], [address], 11:58:04 Medication Orders None recorded. Patient TargetsNo [...] t Abnor mal: No Resul ting Lab: [facility] [address] [facility] [address] Tel: CULTU RE ----- ----- ----- --- No Group B strep isola fadumo at 2 days (jamison ctive broth enhan cemen t) Not Available [facility] (Lab) [address], [place], [address], 02/25/2022 15:13:19 02/23/20 22 02/22/2022 non-s tress test No observ ation record ed. [email or web address] [facility] [address], [place], [address], 02/22/2022 11:49:08 02/23/20 22 02/22/2022 US, obste tric, bioph ysica l profi le + non-s tress test No observ ation record ed. [email or web address] [facility] [address], [place], [address], 02/22/2022 13:04:11 02/23/20 22 02/22/2022 US, obste tric, bioph ysica l profi le + non-s tress test No observ ation record ed. [email or web address] [address] [facility], [place], [address], 02/24/2022 09:01:16 03/01/20 22 03/01/2022 US, obste tric, bioph ysica l profi le + non-s tress test No observ ation record ed. [email or web address] [facility] [address], [place], [address], 03/01/2022 10:59:56 03/01/20 22 03/01/2022 US, obste tric, bioph ysica l profi le + non-s tress test No observ ation record ed. [email or web address] [address], [place], [address], 03/01/2022 16:07:31 03/01/20 22 03/01/2022 non-s tress test No observ ation record ed. [email or web address] [facility] [address], [place], [address], 03/01/2022 11:31:31 03/06/20 22 03/06/2022 non-s tress test No observ ation record ed. [email or web address] [place] [address], [place], [address], 03/06/2022 15:09:02 03/06/20 22 03/06/2022 US, obstshahla tric, bioph ysica l profi le + non-s tress test No observ ation record ed. [email or web address] [facility] [address], [place], [address], 03/06/2022 18:48:03 03/06/20 22 03/06/2022 US, obste tric, follo w-up No observ ation record ed. [email or web address] [place] [address], [place], [address], 03/06/2022 18:48:15 03/06/20 22 03/06/2022 US, obste tric, bioph ysica l profi le + non-s tress test No observ ation record ed. LESLIE [address], [place], [address], 03/06/2022 20:14:57 03/15/20 22 03/15/2022 non-s tress test No observ ation record ed. [email or web address] [facility] [address], [place], [address], 03/15/2022 11:50:35 03/15/20 22 03/15/2022 US, obste tric, bioph ysica l profi le + non-s tress test No observ ation record ed. [email or web address] [place] [address], [place], [address], 03/15/2022 12:58:32 03/15/20 22 03/15/2022 US, obste tric, bioph ysica l profi le + non-s tress test No observ ation record ed. LESLIE [address], [place], [address], 03/21/2022 20:16:17 Result Notes None recorded. Problems Name Problem SNOMED Code Status Onset Date Resolution Date Notes Provider Name and Address Organization Details Recorded Time Laborato ry test result abnormal [id number] Completed had anti-M and anti-Melanie antibodi es- titers followed last pregnanc y.- Normal on PNL labs & on rpt. No further b/w needed Hayley lo [facility], [facility] 2 11:51:18 Laborato ry test result abnormal 635557248 Active had anti-M and anti-Melanie antibodi es- titers followed last pregnanc y.- Normal on PNL labs & on rpt. No further b/w needed Hayley lo [facility], [facility] 2 11:51:18 Placenta circumva llata 9863640 Completed growth Hayley martin, [facility] 2 11:51:18 Single umbilica l artery 553530175 Completed serial growth, antenata l testing 36w Hayley Mooneyh l null, [facility] 2 11:51:19 Single umbilica l artery 406478346 Active serial growth, antenata l testing 36w Hayley Langtieh l null, [facility] 2 11:51:19 Placenta circumva llata 1648894 Active growth Hayley Mooneyh l null, [facility] 2 11:51:18 Depressi ve disorder 19144108 Completed zoloft Hayley Mooneyh l null, [facility] 2 11:51:19 Depressi ve disorder 03982126 Active zoloft Hayley Mooneyh l null, [facility] 2 11:51:19 Polycyst ic ovary syndrome 779544615 Active 2020 Pushpa Aquino MD [address], [place], [address], [facility] 1 17:37:18 Insulin resistan ce 183307360 Active 2020 Pushpa Aquino MD [address], [place], [address], [facility] 17:37:29 Pregnanc y 31219436 Completed 202004/12/2022 Hayley Almendarez l null, [facility] 2 11:51:26 Prediabe virginie 784035140 Completed 2020 early GCT Hayley Mooneyh l null, [facility] 2 11:51:18 Prediabe virginie 256110086 Active 2020 early GCT Hayley Mooneyh l null, [facility] 11:51:18 Problem Notes None recorded. Procedures Surgical History Date Name Laterality Status Provider Name and Address Organization Details Recorded Time 05/02/2020 Date of Last Pap Smear completed [facility] 07/12/2022 09:20:56 11/24/1991 tonsilecto my/adenoid s completed Sheela Mills [facility] 03/01/2022 11:30:07 Imaging Results None [...] Body mass index (BMI) Body weight Systolic And Diastolic Provider Name and Address Organization Details Last Updated DateTime 03/15/2022 177.8 cm 41.5 kg/m2 701645.19 493 g 111/78 mm[Hg] [facility] 03/15/2022 11:43:16 Date Recorded Body height Body mass index (BMI) Body weight Systolic And Diastolic Provider Name and Address Organization Details Last Updated DateTime 05/08/2022 177.8 cm 36.9 kg/m2 885217.24 g 130/82 mm[Hg] Saima Anaya [facility] 05/08/2022 14:39:53 Social History Question Answer Notes LastModified by Organizat ion Details LastModified Time Tobacco Smoking Status Never Smoker Sheela martin, [facility] 03/01/2022 11:29:33 Do You Have [...] Or The Highest Degree You Have Received? [id number] Information not available 02/22/2022 Are There Any [...] 02/22/2022 Do You Use Sunscreen Routinely? No [email or web address] Information not available 03/01/2022 Have You Used IV Drugs? No Information not available 02/22/2022 Do You Have Difficulty Walking Or Climbing Stairs? No [email or web address] Information not available 03/01/2022 Sex: Unknown Functional Status Question Answer Note LastModified by Organizat ion Details LastModified Time Do you use any illicit or recreational drugs? No Information not available 02/22/2022 What is your level of alcohol consumption? None Information not available 02/22/2022 Are you able to walk? YESWOREST Information not available 02/22/2022 Are you able to care for yourself? 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 No [email or web address] Information not available 03/01/2022 What is your exercise level? Occasional Information not available 02/22/2022 Mental Status Question Answer Note LastModified by Organization D etails LastModified Time Do you feel stressed (tense, restless, nervous, or anxious, or unable to sleep at night)? [id number] Information not available 02/22/2022 Family History Relationship Description Onset Age of this Age Resolved Age Notes LastModified by Organization Details LastModified Time Father Carcinoma in situ of colon [email or web address] Not available 03/01 11:29:31 Father Malignant tumor of colon Not available 2021 11:39:35 Paternal Grandmother Heart disease [email or web address] Not available 2020 14:45:47 Paternal Aunt Female infertility [email or web address] Not available 06/2022 11:29:31 Paternal Aunt Malignant tumor of colon [email or web address] Not available 03/01 11:29:31 Maternal Uncle Female infertility [email or web address] Not available 06/2022 11:29:31 Maternal Grandfather Heart disease [email or web address] Not available 03/01 11:29:31 Paternal Uncle Malignant tumor of colon [email or web address] Not available 03/01 11:29:31 Medical History Condition Response Allergies (Food, seasonal, environmental ) N Other N Drug/Latex Allergies/Reactions N Blood Transfusion N Breast Cancer N Dermatologic Disorders N Lung Disease N Defects or Inherited Disease N Breast Problem N Gestational Diabetes N Hematologic disorders N Anesthesia Complications N History of STI N Deep Vein Thrombosis N Polycystic ovary syndrome Y Anxiety Disorder N Autoimmune disease N Arthritis N Polyps N Infertility N Acid Reflux (GERD) N History of abnormal pap N Cancer N Varicosities N Stroke N Neurologic/Epilepsy N Endometriosis N High Cholesterol N Fibromyalgia N Headaches N Kidney Disease N Heart Problems N Thyroid Problems N Kidney or Bladder Problems N GI Problems N Eating Disorder [...] SNOMED-CT Code Diagnosis ICD10 Code Diagnosis Note [id number] Pushpa Aquino MD [facility] [address] [address] 12/26/2020 14:37:31 12/28/2020 16:01:00 Polycystic ovary syndrome 709138143 E28.2 Insulin resistance 71398 5000 E88.81 Trying to conceive 79255 9001 Z31.9 [id number] Pushpa Aquino MD [facility] [address],[place] [address] 06/25/2021 14:29:24 06/25/2021 17:28:50 Complete miscarriage 466505103 O03.9 Reproducti care management 579841484 Z31.9 Polycystic ovary syndrome 787634184 E28.2 68494 Pushpa Aquino MD [place] [address],[place] [address] 07/09/2021 14:46:57 07/10/2021 16:54:10 Gynecologic examination 95972653 Z01.419 17138 Pushpa Aquino MD [place] [address],[place] [address] 07/26/2021 11:55:54 07/26/2021 12:45:12 Uncertain viability of 195450333 O36.80X0 Z3A.01 43224 MD Vince Sena [address],[place] [address] 07/31/2021 12:19:48 07/31/2021 13:11:40 Threatened miscarriage 34354070 O20.0 Z3A.01 83165 MD Vince Sena [address],[place] [address] 08/06/2021 14:00:55 08/06/2021 15:26:25 Threatened miscarriage 27279955 O20.0 Z3A.01 Z3A.08 60128 MD Vince Sena [address],[place] [address] 08/20/2021 11:17:20 08/21/2021 15:28:02 Routine care 542671897 Z34.91 Laboratory test result abnormal 333429917 R89.9 Prediabetes 209261102 R7 3.03 [id number] MD Vince Sena [address],[place] [address] 08/20/2021 11:17:51 03/26/2024 13:30:35 [id number] MD Vince Sena [address],[place] [address] 09/17/2021 11:10:33 09/17/2021 17:49:57 Laboratory test result abnormal 580217787 R89.9 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 [id number] Pushpa Aquino MD [place] [address],[place] [address] 10/22/2021 11:03:23 10/22/2021 12:24:17 screening for malformation 486952309 Z36.3 90010 Pushpa Aquino MD [place] [address],[place] [address] 10/22/2021 11:05:30 10/22/2021 13:06:52 Single umbilical artery 391157132 Q27.0 Prediabetes 500241328 R7 3.03 Polycystic ovary syndrome 941930270 E28.2 Placenta circumvallata 3790016 O43.119 Mixed anxi ety and depressive disorder 040463692 F41.8 23926 Pushpa Aquino MD [place] [address],[place] [address] 10/26/2021 10:27:47 10/26/2021 11:55:26 [id number] Pushpa Aquino MD [place] [address],[place] [address] 11/20/2021 13:49:48 11/20/2021 14:52:28 screening 956902814 Z36.2 38417 MD Vince Sena [address],[place] [address] 11/30/2021 14:14:50 11/30/2021 15:07:30 Placenta circumvallata 4189024 O43.119 Single umb ilical artery 196376295 Q27.0 [id number] Pushpa Aquino MD [place] [address],[place] [address] 01/09/2022 10:20:32 01/09/2022 10:57:01 condition affecting obstetrical care of mother 136730953 O35.9XX0 Z3A.30 66737 MD Vince Sena [address],[place] [address] 01/09/2022 10:21:02 01/11/2022 11:44:14 Single umbilical artery 157041756 Q27.0 Placenta circumvallata 5229445 O43.119 [id number] Pushpa Aquino MD [place] [address],[place] [address] 01/23/2022 11:11:10 01/23/2022 11:45:54 Placenta circumvallata 4057825 O43.119 Single umb ilical artery 246979559 Q27.0 Depressive disorder 3548 9007 F32.A 86335 Pushpa Aquino MD [place] [address],[place] [address] 02/08/2022 12:02:09 02/08/2022 12:56:40 Single umbilical artery 952764199 Q27.0 Placenta circumvallata 4333535 O43.119 13406 Pushpa Aquino MD [place] [address],[place] [address] 02/08/2022 12:03:37 02/08/2022 12:37:36 condition affecting obstetrical care of mother 363031203 O35.9XX0 Z3A.34 41057 MD Vince Cornejo [address],[place] [address] 02/22/2022 10:55:52 02/22/2022 12:16:01 Routine care 536717574 Z34.83 32081 MD Vince Cornejo [address],[place] [address] 02/22/2022 11:21:33 02/22/2022 11:52:41 condition affecting obstetrical care of mother 642036607 O36.93X0 47178 MD Vince Cornejo [address],[place] [address] 02/22/2022 11:21:58 02/22/2022 13:12:47 Single umbilical artery 817269303 Q27.0 O43.119 Z3A.36 cond ition affecting obstetrical care of mother 521739650 O36.93X0 55591 [facility] [address],[place] [address] 03/01/2022 10:28:09 03/01/2022 11:47:40 Routine care 230437979 Z34.93 [id number] Vikram Arias MD [place] [address],[place] [address] 03/01/2022 10:26:31 03/01/2022 11:37:21 Placenta circumvallata 8738170 O43.119 Q27.0 Z3A.37 04396 Vikram Arias MD [place] [address],[place] [address] 03/01/2022 10:27:54 03/01/2022 11:08:14 Placenta circumvallata 5788665 O43.119 Q27.0 Z3A.37 37223 Pushpa Aquino MD [place] [address],[place] [address] 03/06/2022 14:27:41 03/06/2022 15:09:53 Placenta circumvallata 5232110 O43.119 Q27.0 Z3A.37 [id number] MD Cecilia [place] [address],[place] [address] 03/06/2022 14:28:01 03/06/2022 15:57:01 condition affecting obstetrical care of mother 236109269 O35.9XX0 O43.113 Z3A.38 59565 Pushpa Aquino MD [place] [address],[place] [address] 03/06/2022 14:28:14 03/06/2022 16:21:54 Routine care 547658199 Z34.91 [id number] MD Vince Sena [address],[place] [address] 03/15/2022 10:55:30 03/15/2022 12:00:35 Single umbilical artery 448583058 Q27.0 O43.119 Z3A.36 Placenta circumvallata 9611962 O43.119 Q27.0 Z3A.37 17254 Pushpa Aquino MD [place] [address],[place] [address] 03/15/2022 10:56:48 03/15/2022 11:58:04 Placenta circumvallata 3021815 O43.119 Q27.0 Z3A.37 47389 Pushpa Aquino MD [place] [address],[place] [address] 03/15/2022 10:57:14 03/15/2022 12:56:11 Single umbilical artery 712261194 Q27.0 O43.119 Z3A.39 17464 Vikram Arias MD [place] [address],[place] [address] 03/25/2022 10:26:12 03/26/2022 12:56:28 [id number] Pushpa Aquino MD [place] [address],[place] [address] 05/08/2022 14:32:06 05/08/2022 15:24:24 care 888968996 Z39.2 Health Concerns Section Related Observation LastModified by Organization Detai ls LastModified Time None Recorded Concern Status LastModified by Organization Details LastModified Time None Recorded Advance Directives Directive N: Payers Insurance Date Sequence Insurance Name Policy Number Policy León Covered Member ID León Member ID Guarantor Name 07/09/2022 1 [place] [id number] Flo Carias [id number] Flo Carias 05/13/2022 PAYMENT PLAN Flo Carias 06/07/2023 PAYMENT PLAN Flo Carias 07/09/2022 1 [place] [employer] [place] [employer] Flo Carias [id number] Flo Carias Notes Date Note Type Note Provider Name and Address Organization Details Recorded Time 05/08/2022 text/html Patient is a 31yo presenting for a 4 week visit. She had a on 03/18 at 40 weeks GA. Baby Noorvik doing great. breast and bottle feeding. Doing well overall. Normal lochia. Pain- *none. Bowel and bladder function normal. Negley score 3 Annual due:next month Concerns: none Pushpa Aquino MD [address], [place], [address], [place] [facility] 05/08/2022 15:00:44 OBGyn Episode Ob Episode Information Episode Created Date Number of Fetuses Patient Bloodtype Patient rh Status Prepregnancy Weight lbs Domestic Partner Domestic Partner Phone Father Name Director Women Status 12/26/19 21 1 CLOSED Fetus Data [...] Domestic Partner Domestic Partner Phone Father Name Director Women Status 06/25/20 21 1 CLOSED Fetus Data First Name Last Name Admitted to NICU Weight (g) Sex Living Outcome Pediatric Complications Fetus ID Race Codes Race Delivery Type , Spontane ous [id number] Kenn Calculation Initial Kenn Date Initial Exam [...] Domestic Partner Domestic Partner Phone Father Name Director Women Status 08/20/20 21 1 A Negative 222 CLOSED Fetus Data First Name Last Name Admitted to NICU Weight (g) Sex Living Outcome Pediatric Complications Fetus ID Race Codes Race Delivery Type Noor[place] Tomer 4252.42 5 M true Full Term 34159 Vaginal Delivery Problems Problem Notes Rhogam 06/08/21 Problem Name Start Date End Date Resolution Snomed Code Not e Placenta circumvallata 5429608 growth US Single umbilical artery 774300 001 serial growth, testing 36w Prediabetes 08/22/[address] Laboratory test result abnormal 498392514 had anti-M and anti-Melanie antibodies- titers followed last .- Normal on PNL labs & on rpt. No further b/w needed Depressive disorder MEDICATION [id number] zoloft Kenn Calculation Initial Kenn Date Initial [...] Date Ultra Sound Latest Days Gestation 0 08/22/2021 03/18/20 22 0 Pre- Flowsheet Flowsheet Date 08/20/2021 Renteria Score Blood Edema Fundus Height Fundus Units Glucose Ketones Leukocytes Nitrite Labor Signs Protein Cervic Dilation Cervic Effacement Cervic Station neg none trace Type Weight in lbs Pre/Post Dialysis Refused Weight 227.579850598320 BP Diastolic BP Location Tested BP Systolic [...] Weight in lbs Pre/Post Dialysis Refused Weight 221.443607567001 BP Diastolic BP Location Tested BP Systolic [...] Weight in lbs Pre/Post Dialysis Refused Weight 233.034983577291 BP Diastolic BP Location Tested BP Systolic [...] Weight in lbs Pre/Post Dialysis Refused Weight 248.309318600859 BP Diastolic BP Location Tested BP Systolic BP Type 82 128 Fetus Heart Rate Present A 150 Fetus Movement A Yes Comments Doing ok except stressful we ek. Had falling out with mom. Ex has new gf. Not sure who will be there as her support person. considering youth advocate, but expensive. not sure how she will [...] Weight in lbs Pre/Post Dialysis Refused Weight 261.79777234331 BP Diastolic BP Location Tested BP Systolic [...] Weight in lbs Pre/Post Dialysis Refused Weight 264.795547377502 BP Diastolic BP Location Tested BP Systolic [...] Weight in lbs Pre/Post Dialysis Refused Weight 273.016749755187 BP Diastolic BP Location Tested BP Systolic [...] Weight in lbs Pre/Post Dialysis Refused Weight 277.692391010989 BP Diastolic BP Location Tested BP Systolic [...] Weight in lbs Pre/Post Dialysis Refused Weight 279.804813932304 BP Diastolic BP Location Tested BP Systolic [...] Weight in lbs Pre/Post Dialysis Refused Weight 281.025051053251 BP Diastolic BP Location Tested BP Systolic [...] Weight in lbs Pre/Post Dialysis Refused Weight 289.608315503163 BP Diastolic BP Location Tested BP Systolic BP Type 78 111 Fetus Heart Rate Present A 140 Fetus Movement A Yes Comments Doing well. Good FM. IOL jhonathan eduled friday evening. NST reactive. Discussed induction, questions answered. Precautions [...] Estim ated Date of Delivery false Thalassemia (Ugandan, Indonesian, Mediterranean, Or Background): MCV < 80 false Neural Tube Defect (Meningomyelocele, Spina Bifi da, Or Anencephaly) false Congenital Heart Defect false Down Syndrome false Samir-Sachs (eg, Taoism, Cajun, Azerbaijani-Corson) f alse Gillian Disease false Sickle Cell Disease Or Trait () false Hemophilia Or Other Blood Disorders false Muscular Dystrophy false Cystic Fibrosis false Rosaline's Chorea false Intellectual Disability/Autism false If Yes, [...]
--- NOTE | 2025-06-27 16:30 | WPDHOLTEREM ---
Holter/Event Monitor Holter/Event Monitor Date of procedure: 06/14/25 Holter/Event Procedure: 3-7 Day Holter Monitor Indications: Palpitations Conclusion: 1. 7 days holter monitor on 06/14/25. 2. Underlying rhythm is sinus rhythm. HR range 56-161 bpm; average HR 89 bpm. HR at 161 bpm was on 06/19/25 at 5:35 pm. 3. There are rare premature supraventricular complexes, rare supraventricular couplets, and rare supraventricular triplets. No supraventricular tachycardia. 4. There are rare premature ventricular complexes. No ventricular tachycardia. 5. No significant pauses greater than 3 seconds. 6. Patient reports 6 episodes of symptoms of irregular beats, shortness of breath which demonstrate sinus rhythm, HR range 79-104 bpm with 3 episodes with PVC's.
== END 2025-06-14 09:51 | disposition home or self-care (01) ==
PROVIDERS: PCP Family Medicine Adolescent Medicine; Visit Provider Nurse Practitioner Family
DX: I49.1 Atrial premature depolarization (principal); I49.3 Ventricular premature depolarization; R00.2 Palpitations
CPT/HCPCS: 93242

== ENCOUNTER 2025-11-02 01:43 | Day surgery (SDC) | payer OTHER, SELFPAY ==
[2025-10-10 14:46] VITALS: BMI 42.8
--- NOTE | 2025-11-02 13:26 | WPDANESEPPF ---
Anes - Initial Pre Proc Eval Procedure: Operation Date: 11/02/25 14:00 Proposed Procedures p Screening Colonoscopy - Jeffery Van MD Date/Time: 11/02/25 13:26 Surgeon: Jeffery Van MD Pre Op Diagnosis: Other specified personal risk factors, not elsewhe Patient Data Age: 35 Gender: F Height: 1.78 m Weight: 135.5 kg Allergies Allergy/AdvReac Type Severity Reaction Status Date / Time adhesive tape Allergy Rash Verified 10/10/25 14:29 Deodorant Allergy Intermediate rash Uncoded 10/10/25 14:29 Home Medications ?Medication ?Instructions ?Recorded ?Confirmed ?Type medroxyprogesterone 10 mg tablet 10 mg PO DAILY #10 tabs 09/20/25 10/10/25 Rx (Provera) spironolactone 100 mg tablet 100 mg PO DAILY #90 tabs 09/20/25 10/10/25 Rx Patient hx anesthesia problems: none Family hx anesthesia problems: none Results Review: All pre-operative results and documents have been reviewed as part of the pre-operative evaluation. [facility] Past Medical History Medical History History of PCOS Surgical History Surgical History H/O adenoidectomy Hx of tonsillectomy Family History Family History Mother Skin cancer Sibling ADHD Sibling Autism Father Colon cancer Social History Social History Smoking status: Never smoker Second hand tobacco smoke exposure: No Alcohol intake: never Substance use: never Substance use type: does not use Lack of Transportation: No Lack of Food: Never True Current Housing: I Have Housing Concerned About Future Housing: No Difficulty Paying Gas/Electric Bills: No Difficulty Paying for Meds: No Currently Unemployed: No Education: High School Diploma/GED Difficulty w/ Childcare or Family Care: No Living arrangements: with family Occupation/Education: occupation Additional occupation/education comments: Product associate Gender identity (if verbalized by the patient): Female Sexual Orientation (if Verbalized by the Patient): Straight or Heterosexual Spiritual care concerns: No Anes - Eval Final PreProcedure Day of Procedure 11/02/25 13:26 Patient weight: morbidly obese Heart: regular rate and rhythm Lungs: clear to auscultation Airway: Mallampati scale class II Neurological: alert and oriented Last oral intake: >/= 8 hours ASA classification: III Emergent: no Anesthetic plan: proceed Anesthesia type and monitoring: general GIVS and standard monitoring Results Review: All pre-operative results and documents have been reviewed as part of the pre-operative evaluation. Informed Consent: The patient's anesthetic plan and its attendant risks and benefits were discussed with the patient/family/POA. Questions were solicited and answers provided to the satisfaction of the patient/family/POA.
[2025-11-02 13:41] VITALS: BP 134/81; PULSE 88; RESP 18; TEMP 36.5; O2SAT 98
[2025-11-02 13:48] LABS: BEDSIDEPREGUCG Negative (Negative)
[2025-11-02] MEDS: LACTATED RINGERS 1,000 ML 150 ML IV CONT (13:53)
--- NOTE | 2025-11-02 14:49 | P.HP_ITS ---
H&P: HPI History of Present Illness Date/Time: 11/02/25 14:49 Chief Complaint: Family history of colon cancer Narrative: This patient has family history of colorectal cancer. Her father had colon cancer at age 50. The the this is her 1st colonoscopy. Review of Systems Review of Systems: All systems reviewed & are unremarkable except as noted in HPI and below PMFSH Past Medical History Medical History History of PCOS Surgical History Surgical History H/O adenoidectomy Hx of tonsillectomy Family History Family History Mother Skin cancer Sibling ADHD Sibling Autism Father Colon cancer Social History Social History Smoking status: Never smoker Second hand tobacco smoke exposure: No Alcohol intake: never Substance use: never Substance use type: does not use Lack of Transportation: No Lack of Food: Never True Current Housing: I Have Housing Concerned About Future Housing: No Difficulty Paying Gas/Electric Bills: No Difficulty Paying for Meds: No Currently Unemployed: No Education: High School Diploma/GED Difficulty w/ Childcare or Family Care: No Living arrangements: with family Occupation/Education: occupation Additional occupation/education comments: Product associate Gender identity (if verbalized by the patient): Female Sexual Orientation (if Verbalized by the Patient): Straight or Heterosexual Spiritual care concerns: No Meds Home Medications and Allergies Home Medications ?Medication ?Instructions ?Recorded ?Confirmed ?Type medroxyprogesterone 10 mg tablet 10 mg PO DAILY #10 ta bs 09/20/25 10/10/25 Rx (Provera) spironolactone 100 mg tablet 100 mg PO DAILY #90 tabs 09/20/25 11/02/25 Rx Allergies Allergy/AdvReac Type Severity Reaction Status Date / Time adhesive tape Allergy Rash Verified 11/02/25 13:38 Deodorant Allergy Intermediate rash Uncoded 10/10/25 14:29 Vital Signs Vital Signs - 24 hr 11/02/25 13:41 Temperature 97.7 F Pulse Rate 88 Respiratory Rate 18 Blood Pressure 134/81 Pulse Oximetry 98 Oxygen Delivery Room Air Exam Const: General: cooperative and healthy appearing Resp: Effort & Inspection: normal respiratory effort and able to speak in complete sentences Auscultation: clear to auscultation bilaterally Cardio: Rate: regular rate Rhythm: regular rhythm GI: Inspection: normal to inspection GI Palp: No No hepatosplenomegaly pres ent Auscultation: normal bowel sounds Rectal Exam: deferred Skin: General skin exam: normal color Psych: Appearance: grossly normal Mental Status: mental status grossly normal Assessment and Plan Assessment and plan (1) Family history of colon cancer: Code(s): Z80.0 - Family history of malignant neoplasm of digestive organs Status: Acute Assessment and Plan: The patient is deemed a good candidate for the procedure. Consent signed. Will proceed. Prior Studies I have reviewed the following patient records and this information was taken into consideration when formulating the assessment and plan.: previous labs, previous ER visits, previous hospitalizations and previous clinic visits
[2025-11-02] MEDS: SIMETHICONE ORAL SUSPENSION 20 MG/0.3 ML 30 ML BOTTLE 0.6 ML IRRIGATION (14:59)
--- NOTE | 2025-11-02 15:06 | S_PTH ---
PATIENT: Flo Carias LOC: [facility] U#:[id number] AGE/SX: 35/F ROOM: RE11/02/[address]: Jeffery Van MD : 1990 BED: DIS: 11/02/2025 SPEC #: [id number] RECD: 11/03/25 08:49 STATUS: SARAVANAN DODD #: [id number] KERVIN: 11/02/25 15:[address]: Mark Ortega DEPT: [facility] Surgical RECD BY: Kitty Blue ENTERED: 11/03/25 08:49 SP TYPE: Surgical OTHR DR: Jeffery Van MD Tissues: A - Colon Polypectomy Procedures: Hematoxylin and Eosin Stain Gross and Microscopic Level 4
[2025-11-02 15:09] VITALS: BP 102/66; PULSE 90; RESP 16; O2SAT 97
[2025-11-02 15:19] VITALS: BP 112/67; PULSE 84; RESP 20; O2SAT 97
[2025-11-02 15:29] VITALS: BP 118/71; PULSE 76; RESP 18; O2SAT 100
== END 2025-11-02 15:41 | disposition home or self-care (01) ==
PROVIDERS: Anesthesiology; PCP Family Medicine Adolescent Medicine; Referring Provider Nurse Practitioner; Visit Provider Internal Medicine Gastroenterology
PROC: 0DJD8ZZ Inspection of Lower Intestinal Tract, Via Natural or Artificial Opening Endoscopic (ICD-10-PCS; CPT 45378; principal; 2025-11-02 14:00)
DX: Z12.11 Encounter for screening for malignant neoplasm of colon (principal); D12.3 Benign neoplasm of transverse colon; E28.2 Polycystic ovarian syndrome; E66.01 Morbid (severe) obesity due to excess calories; Z68.41 Body mass index [BMI] 40.0-44.9, adult; Z98.890 Other specified postprocedural states; Z84.0 Family history of diseases of the skin and subcutaneous tissue; Z80.0 Family history of malignant neoplasm of digestive organs
CPT/HCPCS: 45385; 88305; J2704; J7120